=== PATIENT | male | born 1970 | race Hispanic/Latino ===

== ENCOUNTER 2017-09-14 16:08 | Outpatient (CLI) | payer BC | END 2017-09-14 16:09 | disposition home or self-care (01) | LOC: BICMRI 16:08 | PROVIDERS: ATTEND Orthopaedic Surgery | DX: M25.562 Pain in left knee (principal); S83.242A Other tear of medial meniscus, current injury, left knee, initial encounter; M25.462 Effusion, left knee; M71.22 Synovial cyst of popliteal space [Baker], left knee ==

== ENCOUNTER 2017-09-16 17:54 | Emergency (ER) | payer BC ==
[2017-09-16 19:27] LABS: #Basophils 0.1 thou/uL (0.0-0.2); #Eosinphils 0.2 thou/uL (0.0-0.7); #Lymphocytes 1.8 thou/uL (1.20-3.40); #Monocytes 0.6 thou/uL (0.11-0.59); %Basophils 1.1 % (0.0-1.0); %Eosinophils 2.3 % (0.0-10.0); %Lymphocytes 23.7 % (21.0-51.0); %Monocytes 7.5 % (0.0-10.0); %Neutrophils 65.4 % (42.0-75.0); Mean Corpuscular HGB CONC 35.7 g/dL (32.0-36.0); Mean Corpuscular Hemoglobin 34.6 pg (27.0-31.0); Mean Platelet Volume 6.3 fL (7.4-10.4); Platelet Count 154 thou/uL (130-400); RBC Distribution Width 12.4 % (11.5-14.5); White Blood Cell (WBC) Count 7.7 thou/uL (4.8-10.8)
[2017-09-16 19:33] LABS: INR-International Normal Ratio 1.2; PTT 34.4 SEC (22.9-36.1); Prothrombin Time 15.3 SEC (12.0-14.7)
[2017-09-16 19:50] LABS: ALT (SGPT) 21 U/L (8-55); AST (SGOT) 21 U/L (5-34); Albumin 4.1 g/dL (3.5-5.0); Alkaline Phosphatase 82 U/L (40-150); Anion Gap 14 mmol/L (10-20); BUN (Urea Nitrogen) 19 mg/dL (8.9-20.6); Calc. Creatinine Clearance 0 mL/min (70-130); Calcium 9.8 mg/dL (7.8-10.44); Carbon Dioxide 23 mmol/L (22-29); Chloride 105 mmol/L (98-107); Estimated GFR-MDRD Greater than 90; Globulin 4.2 g/dL (2.4-3.5); Glucose 117 mg/dL (70-105); Potassium 3.8 mmol/L (3.5-5.1); Protein, Total 8.3 g/dL (6.0-8.3); Sodium 138 mmol/L (136-145)
[2017-09-16 21:09] LABS: Bilirubin Negative (Negative); Blood, Urine Large (Negative); Clarity CLOUDY (Clear); Glucose, Urine (Dipstick) Negative (Negative); Leukocyte Negative (Negative); Nitrite Negative (Negative); Protein, Urine (Dipstick) 30 mg/dL (Neg-Trace)
[2017-09-16 21:10] LABS: Bacteria/HPF None Seen HPF (None Seen); Hyaline Casts/LPF 0-3 HYALINE CAST LPF (0-3 Hyaline); RBC/HPF GREATER THAN 50-TNTC HPF (0-3); Squamous Epithelial 0-3 HPF (0-3); WBC/HPF 0-3 HPF (0-3)
[2017-09-16 21:12] LABS: Sperm-AUWi Flag 514.9 (0-9.9)
[2017-09-16 21:20] LABS: Sperm/HPF 2+ HPF (None Seen)
--- NOTE | 2017-09-17 16:13 | CON ---
DATE OF CONSULTATION/PROCEDURE: 09/16/2017 REASON FOR CONSULTATION: Urinary retention. HISTORY OF PRESENT ILLNESS: Mr. Bartlett is a 47-year-old gentleman, who has a prior history of urethr al stricture disease. He underwent DVIU in 06/[address] Dora Pineda. He had been doing rela tively well until today. He states he is now unable to void. Bladder scan in the emergency room dem onstrated approximately 900 mL in his bladder. Attempts to place a catheter were not performed by [facility] emergency room staff. He denies any fevers or chills. PAST MEDICAL HISTORY: Hyperlipidemia; hypertension; obesity; perforated diverticulitis, requiring mu ltiple surgeries. 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 ALLERGIES: No known drug allergies. CHRONIC MEDICATIONS: Omeprazole, lisinopril, hydrochlorothiazide. SOCIAL HISTORY: He is . He has 2 children. REVIEW OF SYSTEMS: Respiratory: No shortness of breath. Cardiovascular: No chest pain or palpitat ions. Gastrointestinal: Denies chronic constipation, diarrhea, complicated prior surgical history f or perforated colon in 2010. Genitourinary: Please see history of present illness. Neurologic: No dizziness or unilateral weakness. PHYSICAL EXAMINATION: GENERAL: He is awake and alert. He is in mild distress secondary to pain. VITAL SIGNS: Temperature 98.8, blood pressure 148/82, pulse 82, respiratory rate 16. HEENT: Normocephalic, atraumatic. NECK: Supple, without masses. CHEST: Clear to auscultation. CARDIOVASCULAR: Regular rate and rhythm. ABDOMEN: Soft, nontender, well-healed abdominal incisions. GENITOURINARY: He is uncircumcised. Urethral meatus was normal. PROCEDURE: The patient was sterilely prepped and a filiform was passed into the bladder. Sequential Councill-tip dilation was performed with Councill-tip dilators up to 18 Malay. A 16-Malay [place] l-tip catheter was then passed over the filiform and the bladder was drained. The patient tolerated procedure well. IMPRESSION: Recurrent urethral stricture disease, status post direct visual internal urethrotomy by Dr. Pineda in 06/2015. Filiforms and followers with dilation today. RECOMMENDATIONS: 1. Antibiotic therapy as an outpatient. 2. Catheter for 1 week.
== END 2017-09-16 21:07 | disposition home or self-care (01) ==
LOC: ERS 17:54
DX: N35.9 Urethral stricture, unspecified (principal); E78.5 Hyperlipidemia, unspecified; I10 Essential (primary) hypertension; Z79.82 Long term (current) use of aspirin; Z79.899 Other long term (current) drug therapy
CPT/HCPCS: 36415; 51702; 80053; 81003; 81015; 85025; 85610; 85730; 87086

== ENCOUNTER 2017-11-09 08:34 | Outpatient (CLI) | payer BC ==
[2017-11-09 10:12] LABS: #Basophils 0.1 thou/uL (0.0-0.2); #Eosinphils 0.2 thou/uL (0.0-0.7); #Lymphocytes 1.5 thou/uL (1.20-3.40); #Monocytes 0.6 thou/uL (0.11-0.59); #Neutrophils 2.2 thou/uL (1.40-6.50); %Basophils 1.2 % (0.0-1.0); %Lymphocytes 32.7 % (21.0-51.0); %Monocytes 13.5 % (0.0-10.0); %Neutrophils 48.7 % (42.0-75.0); Hemoglobin 16.2 g/dL (14.0-18.0); Mean Corpuscular HGB CONC 35.2 g/dL (32.0-36.0); Mean Corpuscular Hemoglobin 34.8 pg (27.0-31.0); Mean Corpuscular Volume 98.8 fl (80.0-94.0); Mean Platelet Volume 6.4 fL (7.4-10.4); Platelet Count 138 thou/uL (130-400); RBC Distribution Width 13.4 % (11.5-14.5); Red Blood Cell (RBC) Count 4.67 mill/uL (4.70-6.10); White Blood Cell (WBC) Count 4.6 thou/uL (4.8-10.8)
[2017-11-09 10:27] LABS: Anion Gap 13 mmol/L (10-20); BUN (Urea Nitrogen) 15 mg/dL (8.9-20.6); Calc. Creatinine Clearance 0 mL/min (70-130); Calcium 9.6 mg/dL (7.8-10.44); Carbon Dioxide 26 mmol/L (22-29); Chloride 108 mmol/L (98-107); Estimated GFR-MDRD Greater than 90; Glucose 98 mg/dL (70-105); Potassium 4.3 mmol/L (3.5-5.1); Sodium 143 mmol/L (136-145)
--- NOTE | 2017-11-10 06:23 | EKG ---
Test Reason : Blood Pressure : / mmHG Vent. Rate : 067 BPM Atrial Rate : 067 BPM P-R Int : 200 ms QRS Dur : 100 ms QT Int : 416 ms P-R-T Axes : 000 -64 007 degrees QTc Int : 439 ms Normal sinus rhythm Left axis deviation Possible Anterior infarct (cited on or before 12-NOV-2013)/ Poor R wave progression Abnormal ECG When compared with ECG of 05-JUN-2015 13:25, Left posterior fascicular block is no longer Present Confirmed by JENNA CAMPO ([id number]) on 11/10/2017 6:11:34 AM Referred By: ZURI Confirmed By:JENNA CAMPO
== END 2017-11-09 08:35 | disposition home or self-care (01) ==
LOC: LABBT 08:34
PROVIDERS: ATTEND Orthopaedic Surgery
DX: Z01.818 Encounter for other preprocedural examination (principal); S83.232A Complex tear of medial meniscus, current injury, left knee, initial encounter
CPT/HCPCS: 80048; 85025; 93005; 93010

== ENCOUNTER 2017-11-16 06:53 | Day surgery (SDC) | payer BC ==
[2017-11-09 08:50] VITALS: BMI 45.9
--- NOTE | 2017-11-15 10:00 | HP ---
HISTORY OF PRESENT ILLNESS: The patient is a 47-year-old male who has a several-month history of lef t knee pain which developed after stepping in a hole while tailgating. He has had progressive sympto ms despite rest, restriction of activities, anti-inflammatory medications, and a previous cortisone i njection. He has pain with walking and has popping and catching sensation. PAST MEDICAL HISTORY: The patient has a history of a urethral stricture and required placement of Fo aime catheter a few months ago, but this problem has resolved. He has had a history of colon resectio n and hypertension. CURRENT MEDICATIONS: Include fenofibrate, lisinopril, hydrochlorothiazide, Cialis, omeprazole. ALLERGIES: He has no known allergies. FAMILY HISTORY/SOCIAL HISTORY/REVIEW OF SYSTEMS: Otherwise unremarkable. PHYSICAL EXAMINATION: GENERAL: Reveals a healthy heavyset male. HEENT: Unremarkable. NECK: Supple. CHEST: Clear. HEART: Regular rate and rhythm. ABDOMEN: Soft, nontender. RECTAL/GENITAL: Deferred. EXTREMITIES: Pertinent findings related to the left knee. There is puffiness but no definite effusi on. There is normal alignment. There is tenderness over the medial joint line. Range of motion is 3-120 degrees. There is pain with Lionel's maneuver. There is a left antalgic gait. Neurovascula r exam is intact. LABORATORY AND X-RAY FINDINGS: X-rays of the left knee reveal degenerative narrowing medially. MRI scan of the left knee reveals degenerative changes and a complex tear of the medial meniscus. IMPRESSION: Internal derangement, left knee with medial meniscal tear, possible component of degener ative joint disease. PLAN: Arthroscopy left knee with possible medial meniscectomy and/or debridement and shaving. The n ature of the surgery, length of recovery, and potential complications such as infection, loss of asmita on, incomplete relief, thromboembolic phenomena, progression of DJD, recurrent degenerative arthritis , recurrent tear and need for additional treatment or repeat surgery have been discussed in detail.
[2017-11-16] MEDS ORDERED: CEFAZOLIN/Water 2 GM/20 ML SYRINGE ONE (08:17)
[2017-11-16] MEDS ORDERED: Metoclopramide HCl 10 MG/2 ML VIAL ONE ×2 (08:23→11:43)
[2017-11-16] MEDS ORDERED: Ondansetron HCl/PF 4 MG/2 ML Vial ONE ×2 (08:23→11:43)
[2017-11-16] MEDS ORDERED: Fentanyl 100 MCG/2 ML VIAL ONE ×2 (08:25→09:10)
[2017-11-16] MEDS ORDERED: Bupivacaine HCl 0.5%/Epinephrine 1:200,000/PF 30 ml Vial ONE (09:03)
--- NOTE | 2017-11-16 09:57 | OP ---
DATE OF PROCEDURE: 11/16/2017 SURGEON: Quinton Moseley M.D. ANESTHESIA: General. PREOPERATIVE DIAGNOSIS: Medial meniscal tear and degenerative joint disease of left knee. POSTOPERATIVE DIAGNOSIS: Medial meniscal tear and degenerative joint disease, left knee. PROCEDURE: Arthroscopy left knee with partial medial meniscectomy. OPERATIVE FINDINGS: Examination under anesthesia revealed the knee to be stable. At arthroscopy, th ere was moderate effusion and moderate diffuse synovitis. There was early grade II and very early gr jimena III changes of the central portion of patella. No areas of exposed bone. There was a complex de generative type tear of the body of the mid and posterior horns of the medial meniscus and grade II a nd grade III changes of the medial femoral condyle and early changes of the medial tibial plateau, bu t no areas of exposed bone. ACL was intact. Lateral compartment revealed no significant degenerativ e changes. There was some slight degenerative fraying of the free margin of the lateral meniscus, bu t no discrete tear and I left as is. NARRATIVE REPORT: After satisfactory anesthesia was induced in the supine position, the patient was placed in a leg dillard and prepped and draped in routine manner. Left leg was elevated, exsanguinate d with an Esmarch bandage, and the tourniquet inflated to 350 mmHg. [place] arthroscope was introduc ed in the anterolateral portal, probe through an anteromedial portal, and inflow and outflow accompli shed through the scope using the Vision 360 Degres (V3D) arthroscopy pump. Arthroscopy was carried out and the above findings were noted. All findings were documented with the video printer and hard copies were made. The posterior horn of the medial meniscus was debrided with use of basket forceps and motorized sha cedric and the remaining rim balanced and probed and found to be stable. There was still intact rim of 3-4 mm. Medial femoral condyle and slight portion of the medial tibial plateau was debrided with a m otorized shaver as was the undersurface of the patella. The scope was introduced to the anteromedial compartment and all compartments visualized and additional pathology found. The knee was copiously irrigated through the scope and all instruments were then withdrawn. Twenty mL of 0.5% Marcaine with epinephrine was instilled into the knee joint and an additional 10 mL injected about the portal site s. The portal sites were closed with 3-0 nylon. A sterile bulky compressive dressing was applied an d the tourniquet deflated after 24 minutes. The foot promptly pinked up and the patient was awakened and taken to recovery room in stable condition. There were no apparent intraoperative complications . The estimated blood loss was negligible. The patient will be discharged home in satisfactory condition. He was instructed on ice, elevation, use of crutches, and home exercise program by the Physical Therapy Department. He was given written wound care instructions and a prescription for [place] 10 for pain, 40 tablets. He will be rechecked i n my office in 10-14 days or sooner if there any problems prior to that time.
[2017-11-16] MEDS ORDERED: Morphine 4 MG/ML VIAL ONE (10:43)
[2017-11-16] MEDS ORDERED: PROPOFOL 200 MG/20 ML VIAL ONE (11:43)
[2017-11-16] MEDS ORDERED: Lidocaine 1% PF 5 ML VIAL ONE (11:43)
[2017-11-16] MEDS ORDERED: Ketorolac Tromethamine 30 MG/ML VIAL ONE (11:43)
[2017-11-16] MEDS ORDERED: Dexamethasone 20 MG/5 ML VIAL ONE (11:43)
== END 2017-11-16 11:55 | disposition home or self-care (01) ==
LOC: SDC 06:53
PROVIDERS: ATTEND Orthopaedic Surgery
PROC: 0SBD4ZZ Excision of Left Knee Joint, Percutaneous Endoscopic Approach (ICD-10-PCS; principal; 2017-11-16)
DX: S83.232A Complex tear of medial meniscus, current injury, left knee, initial encounter (principal); M17.12 Unilateral primary osteoarthritis, left knee; I10 Essential (primary) hypertension; K21.9 Gastro-esophageal reflux disease without esophagitis; E78.5 Hyperlipidemia, unspecified; F17.290 Nicotine dependence, other tobacco product, uncomplicated; Z79.82 Long term (current) use of aspirin; Z79.899 Other long term (current) drug therapy; W18.42XA Slipping, tripping and stumbling without falling due to stepping into hole or opening, initial encounter
CPT/HCPCS: G8978-GP-CI; G8979-GP-CI; G8980-GP-CI; J0131; J0670; J1100; J1885; J2001; J2270; J2405; J2704; J2765; J3010

== ENCOUNTER 2018-09-16 22:05 | Emergency (ER) | payer BC ==
[2018-09-16 22:40] LABS: Bilirubin Negative (Negative); Blood, Urine Moderate (Negative); Clarity Slightly Cloudy (Clear); Glucose, Urine (Dipstick) Negative (Negative); Leukocyte Negative (Negative); Nitrite Negative (Negative); Protein, Urine (Dipstick) Negative (Neg-Trace); pH, Urine 6.5 (5.0-9.0)
[2018-09-16 22:41] LABS: Specific Gravity, Urine 1.006 (1.002-1.036)
[2018-09-16 22:48] LABS: Bacteria/HPF None Seen HPF (None Seen); Crystals/HPF None Seen HPF (Negative); Hyaline Casts/LPF NONE SEEN LPF (0-3 Hyaline); Squamous Epithelial 0-3 HPF (0-3); WBC/HPF 0-3 HPF (0-3)
[2018-09-16 23:30] LABS: Anion Gap 14 mmol/L (10-20); BUN (Urea Nitrogen) 12 mg/dL (8.9-20.6); Calc. Creatinine Clearance 0 mL/min (70-130); Calcium 9.7 mg/dL (7.8-10.44); Carbon Dioxide 19 mmol/L (22-29); Chloride 110 mmol/L (98-107); Estimated GFR-MDRD Greater than 90; Glucose 122 mg/dL (70-105); Potassium 3.5 mmol/L (3.5-5.1); Sodium 139 mmol/L (136-145)
[2018-09-16 23:37] LABS: Eosinophils 6 % (0-10); Hemoglobin 16.5 g/dL (14.0-18.0); Lymphocytes 26 % (21-51); MDiff Complete? YES; Mean Corpuscular HGB CONC 37.7 g/dL (32.0-36.0); Mean Corpuscular Hemoglobin 34.4 pg (27.0-31.0); Mean Corpuscular Volume 91.4 fL (78.0-98.0); Monocytes 15 % (0-10); Neutrophil 48 % (42-75); Platelet Count 109 thou/uL (130-400); Platelet Morphology Comment Appears Decreased; RBC Distribution Width 12.1 % (11.5-14.5); Reactive Lymphocytes 5 % (0-10); Red Blood Cell (RBC) Count 4.81 mill/uL (4.70-6.10)
== END 2018-09-16 23:55 | disposition home or self-care (01) ==
LOC: SCSER 22:05
DX: R33.9 Retention of urine, unspecified (principal); I10 Essential (primary) hypertension; E78.2 Mixed hyperlipidemia; Z79.899 Other long term (current) drug therapy
CPT/HCPCS: 36415; 51703; 80048; 81003; 81015; 85025

== ENCOUNTER 2019-05-09 16:02 | Observation (INO) | payer BC ==
[2019-05-09 18:09] LABS: Hemoglobin 16.5 g/dL (14.0-18.0); Mean Corpuscular HGB CONC 36.4 g/dL (32.0-36.0); Mean Corpuscular Volume 96.1 fL (78.0-98.0); Mean Platelet Volume 7.7 fL (7.4-10.4); Platelet Count 126 thou/uL (130-400); RBC Distribution Width 13.6 % (11.5-14.5); White Blood Cell (WBC) Count 8.6 thou/uL (4.8-10.8)
[2019-05-09 18:30] LABS: ALT (SGPT) 31 U/L (8-55); AST (SGOT) 42 U/L (5-34); Albumin 3.5 g/dL (3.5-5.0); Alkaline Phosphatase 77 U/L (40-110); Anion Gap 15 mmol/L (10-20); BUN (Urea Nitrogen) 43 mg/dL (8.9-20.6); Band 24 % (5-11); Bilirubin, Total 4.2 mg/dL (0.2-1.2); Calc. Creatinine Clearance 0 mL/min (70-130); Calcium 9.4 mg/dL (7.8-10.44); Carbon Dioxide 21 mmol/L (22-29); Chloride 99 mmol/L (98-107); Eosinophils 11 % (0-10); Estimated GFR-MDRD 24; Globulin 4.1 g/dL (2.4-3.5); Glucose 82 mg/dL (70-105); Lipase 273 U/L (8-78); Lymphocytes 15 % (21-51); MDiff Complete? YES; Monocytes 20 % (0-10); Neutrophil 23 % (42-75); Platelet Morphology Comment Appears Decreased; Protein, Total 7.6 g/dL (6.0-8.3); RBC Morphology Normal; Reactive Lymphocytes 7 % (0-10); Sodium 132 mmol/L (136-145)
[2019-05-09 18:35] LABS: Potassium 2.8 mmol/L (3.5-5.1)
[2019-05-09] MEDS ORDERED: Potassium Chloride 40 MEQ in Sodium Chloride 0.9% 500 ML IVPB SCH (19:15)
[2019-05-09 21:54] LABS: Bacteria/HPF None Seen HPF (None Seen); Bilirubin Negative (Negative); Blood, Urine Negative (Negative); Clarity Turbid (Clear); Glucose, Urine (Dipstick) Normal (Negative); Leukocyte Negative Leu/uL (Negative); Mucous/LPF 1+ LPF (<2+); Nitrite Negative (Negative); Protein, Urine (Dipstick) 30 mg/dL (Neg-Trace); RBC/HPF 0-3 HPF (0-3); Squamous Epithelial 0-3 HPF (0-3); Urobilinogen Normal mg/dL (Less than 2)
[2019-05-09] MEDS ORDERED: Ondansetron PF 4 MG/2 ML Vial IVP PRN (23:13)
[2019-05-09] MEDS ORDERED: Acetaminophen 325 MG TAB PO PRN (23:13)
[2019-05-09] MEDS ORDERED: Ondansetron ODT 4 MG TAB PO PRN (23:13)
[2019-05-09] MEDS ORDERED: Acetaminophen 650 MG Suppository PR PRN (23:13)
[2019-05-10 01:06] VITALS: BMI 46.0
[2019-05-10] MEDS: Sodium Chloride 0.9% 1,000 ML IV SCH ×3 (01:16→07:15)
--- NOTE | 2019-05-10 04:43 | HP ---
PRIMARY CARE PHYSICIAN: Dr. Michele Hobbs. CODE STATUS: Full code. CHIEF COMPLAINT: Generalized weakness. HISTORY OF PRESENT ILLNESS: This is a 49-year-old male patient with past medical history of obesity, hypertension, hyperlipidemia, and high triglycerides, came to the hospital after having generalized weakness associated with diarrhea. The patient's symptoms started on Tuesday. He was found to have blood pressure in the 80s over 40s and for that reason, he was sent to the hospital. Symptoms started insidiously and have been gradually getting worse, moderate to severe. REVIEW OF SYSTEMS: CONSTITUTIONAL: No fever chills. The patient reported generalized weakness. RESPIRATORY: No cough, sputum production, or shortness of breath. CARDIOVASCULAR: No chest pain or palpitation. GASTROINTESTINAL: The patient has no nausea or vomiting. The patient has no diarrhea. No abdominal pain. CLINICAL PHARMACY MANAGER: No dizziness, headache, or feeling lightheaded. GENITOURINARY: No burning urination. EXTREMITIES: No leg swelling. All other systems were reviewed and negative except for the findings mentioned above. PAST MEDICAL HISTORY: As mentioned in the HPI. PAST SURGICAL HISTORY: Urethral stricture in 2015. Ruptured intestine, colon. Appendectomy. PSYCHIATRIC HISTORY: No previous psych history. SOCIAL HISTORY: No drugs. The patient is a former cigarette smoker, smoking more than 10 years ago. FAMILY HISTORY: Reviewed and noncontributory for current presentation. KNOWN ALLERGIES: No known drug allergies. REPORTED MEDICATIONS: 1. Lisinopril. 2. Omeprazole. 3. Aspirin. PHYSICAL EXAMINATION: VITAL SIGNS: On presentation; blood pressure 99/46 with heart rate 81, respiratory rate was 20, temperature 98.1, pain was 0, and oxygen saturation was 98% on room air. By the time of my examination, the blood pressure has come up to the 110s. GENERAL APPEARANCE: The patient is obese, alert, oriented, no acute distress. HEENT: Eyes, normal conjunctivae. Dry oral mucosa. Anicteric. No JVD. RESPIRATORY: Bilateral air entry. No rales. No wheezes. Symmetric expansion. CARDIOVASCULAR: Normal rate. Regular rhythm. No murmurs. No gallop. No edema. ABDOMEN: Soft. Normal bowel sounds. MUSCULOSKELETAL: Baseline range of motion and strength. SKIN: Warm and intact. No pallor. No rash. No redness. Capillary refill seems to be intact. NEURO: No evidence of any new focal weakness. Cranial nerves seem to be intact. PSYCH: The patient is in good mood. No anxiety. Optimal judgment. LABORATORY DATA: EKG was reviewed. The patient has sinus rhythm with premature atrial complexes, ventricular rate 71, NC 172, QRS 106, and QT corrected 497. Labs were reviewed. The patient has a white count 9.6, hemoglobin 16.5, MCV 96.1, and platelet count 126. Chemistry; sodium 132, potassium 2.8, chloride 99, carbon dioxide 21, anion gap 15, BUN 43, creatinine 2.84, GFR 24, and glucose 82. Lactic acid initially 3.0, second one 2.0. LFTs were negative. Mild elevation in AST of 42. Albumin 3.5, globulin 4.1, albumin-globulin ratio 0.9. Lipase 273. Urine was done and the patient has white count of 4 to 6. ASSESSMENT AND PLAN: The patient will be placed in the hospital with following medical problems; 1. Dehydration. The patient had been doing some outside work and also had some diarrhea. The patient has acute kidney injury that was secondary to dehydration. We will hydrate. We will monitor and treat accordingly. 2. Acute kidney injury. The patient has a creatinine of 2.84. The previous creatinine that we have on record from March was 0.7. Likely due to dehydration. We will hydrate. We will monitor kidney function and treat accordingly. 3. Hyponatremia, sodium 132, this is mild. No need for any further treatment at this point. 4. Hypokalemia, potassium 2.8. This is moderate. We will replace electrolytes as needed. 5. Mild elevation of lipase at 273. We will monitor. No other symptoms leading to pancreatitis diagnosis. 6. Lactic acidosis, on presentation was 3.0, it was corrected to 2.0. We will monitor and treat accordingly. 7. The patient has bandemia of 24. Unclear etiology for this problem. We will continue to observe and we will treat with antibiotics if any other findings appear. As of now, the picture goes more with dehydration than with infection. 8. Deep venous thrombosis prophylaxis. Job ID: [id number]
[2019-05-10 05:56] LABS: Anion Gap 9 mmol/L (10-20); BUN (Urea Nitrogen) 31 mg/dL (8.9-20.6); Calc. Creatinine Clearance 177 mL/min (70-130); Calcium 8.1 mg/dL (7.8-10.44); Carbon Dioxide 21 mmol/L (22-29); Chloride 106 mmol/L (98-107); Estimated GFR-MDRD 79; Glucose 98 mg/dL (70-105); Potassium 2.7 mmol/L (3.5-5.1); Sodium 133 mmol/L (136-145)
[2019-05-10 06:15] LABS: Band 11 % (5-11); Eosinophils 2 % (0-10); Hemoglobin 13.8 g/dL (14.0-18.0); Hypochromia SLIGHT = 6-15 cells (100X) (0-5/hpf); Lymphocytes 32 % (21-51); MDiff Complete? YES; Mean Corpuscular HGB CONC 36.6 g/dL (32.0-36.0); Mean Corpuscular Hemoglobin 35.6 pg (27.0-31.0); Mean Corpuscular Volume 97.2 fL (78.0-98.0); Mean Platelet Volume 7.8 fL (7.4-10.4); Monocytes 13 % (0-10); Neutrophil 42 % (42-75); Platelet Count 90 thou/uL (130-400); Platelet Morphology Comment Appears Decreased; RBC Distribution Width 13.5 % (11.5-14.5); Red Blood Cell (RBC) Count 3.87 mill/uL (4.70-6.10); White Blood Cell (WBC) Count 5.4 thou/uL (4.8-10.8)
[2019-05-10] MEDS ORDERED: Potassium Chloride 20 MEQ TAB PO SCH ×2 (06:15→09:00)
[2019-05-10] MEDS ORDERED: Potassium Chloride 40 MEQ in Premix Bag 1 BAG IVPB SCH (07:45)
[2019-05-10 07:59] LABS: ALT (SGPT) 26 U/L (8-55); AST (SGOT) 34 U/L (5-34); Albumin 2.8 g/dL (3.5-5.0); Alkaline Phosphatase 64 U/L (40-110); Bilirubin, Direct 1.7 mg/dL (0.1-0.3); Bilirubin, Total 2.6 mg/dL (0.2-1.2); Protein, Total 5.9 g/dL (6.0-8.3)
[2019-05-10] MEDS: Potassium Chloride 20 MEQ in Premix Bag 1 BAG IVPB SCH ×2 (08:11→10:52)
[2019-05-10] MEDS ORDERED: FLU VACC QS2019-20(6MOS UP)/PF 60 MCG/0.5 ML SYRINGE IM ONE (09:00)
[2019-05-10] MEDS: Enoxaparin Sodium 30 MG/0.3 ML SYRINGE SC SCH ×2 (09:29→09:38)
[2019-05-10] MEDS ORDERED: metroNIDAZOLE 500 MG TAB PO SCH ×2 (09:45→15:00)
[2019-05-10] MEDS ORDERED: Azithromycin 250 MG TAB PO SCH (09:45)
[2019-05-10] MEDS ORDERED: Saccharomyces boulardii 250 MG CAP PO SCH (09:45)
[2019-05-10 14:37] LABS: Potassium 3.6 mmol/L (3.5-5.1)
[2019-05-10 16:37] VITALS: BP 136/65; TEMP 97.8
[2019-05-11] MEDS ORDERED: Azithromycin 250 MG TAB PO SCH (09:00)
[2019-05-11] MEDS ORDERED: Saccharomyces boulardii 250 MG CAP PO SCH (09:00)
--- NOTE | 2019-05-11 14:43 | DIS ---
DATE OF ADMISSION: 05/09/2019 DATE OF DISCHARGE: 05/10/2019 DISCHARGE DISPOSITION: Home. FOLLOWUP: Follow up with Dr. Michele Hobbs in 1 week. CMP with lipase after 3 days is recommended. Primary care physician advised to follow. The patient was advised to resume lisinopril/hydrochlorothiazide after 2 to 3 days. ALLERGIES: NO KNOWN DRUG ALLERGIES. DIAGNOSTIC TESTS: WBC on admission was 8.6 with 24% bandemia. At discharge, his WBC is 5.4 with 11% bandemia (normal range). Lowest potassium was 2.7, at discharge is 3.6. Total bilirubin on admission was 4.2, at discharge is 2.6 with normal AST and ALT. His AST on admission was 42. BRIEF HOSPITAL COURSE: The patient is a 49-year-old male, who presented to the emergency room with generalized weakness along with significant diarrhea. Please refer to the history and physical for further details. The patient was admitted to the hospital with a diagnosis of dehydration with acute kidney injury secondary to acute gastroenteritis. His creatinine on admission was 2.84, that improved to 1.0 on IV hydration. He also had electrolyte abnormalities, which were corrected. His potassium at discharge is 3.6. His stool workup was positive for Campylobacter. Preliminary stool culture is normal. He has been started on azithromycin with Flagyl. He appears stable for discharge. He only had 2 episodes of diarrhea on the day of discharge. He never had any nausea and vomiting. His lipase elevation is probably not from acute pancreatitis. A repeat lipase after 2 to 3 days is recommended along with electrolytes and LFTs. FINAL DIAGNOSES: 1. Acute gastroenteritis. 2. Generalized weakness secondary to acute gastroenteritis. 3. Dehydration with acute kidney injury with hyponatremia, hypokalemia, and metabolic acidosis. 4. Abnormal liver function tests secondary to acute gastroenteritis. 5. Lactic acidosis secondary to dehydration. His lactic acid on admission was 3.0. 6. Hypertension. 7. Hyperlipidemia. 8. Morbid obesity with a body mass index of 46. Plan of care was discussed with the patient in detail. He stated understanding. Job ID: [id number]
--- NOTE | 2019-05-13 02:46 | EKG ---
Test Reason : ER Blood Pressure : / mmHG Vent. Rate : 071 BPM Atrial Rate : 071 BPM P-R Int : 172 ms QRS Dur : 106 ms QT Int : 458 ms P-R-T Axes : -18 -54 016 degrees QTc Int : 497 ms Sinus rhythm with Premature atrial complexes Left axis deviation Inferior infarct , age undetermined Abnormal ECG Confirmed by BRIA WALSH, MARIBEL Garcia ([id number]), book editor SHERRY DALEY ([id number]) on 05/13/2019 2:46:22 AM Referred By: Confirmed By:MARIBEL FRASER MD
== END 2019-05-10 17:27 | disposition home or self-care (01) ==
LOC: ERS 16:02 → ERHOLD 19:00 → 2SW 05-10 00:53
PROVIDERS: ADMIT Hospitalist; ATTEND Hospitalist
DX: K52.9 Noninfective gastroenteritis and colitis, unspecified (principal); E86.0 Dehydration; N17.9 Acute kidney failure, unspecified; E87.1 Hypo-osmolality and hyponatremia; E87.6 Hypokalemia; E87.2 Acidosis; I10 Essential (primary) hypertension; E78.5 Hyperlipidemia, unspecified; E66.9 Obesity, unspecified; Z68.42 Body mass index [BMI] 45.0-49.9, adult; Z87.891 Personal history of nicotine dependence; Z79.82 Long term (current) use of aspirin; Z79.899 Other long term (current) drug therapy
CPT/HCPCS: 36415; 80048; 80053; 80076; 81003; 81015; 83605; 83630; 83690; 83735; 85025; 87045; 87046; 87328; 87329; 87427; 87449; 93005; 96361; 96365; 96366; G0378; J1650; J3480; J7050

== ENCOUNTER 2019-05-30 08:44 | Emergency (ER) | payer BC ==
--- NOTE | 2019-05-30 09:37 | RAD ---
UPRIGHT PORTABLE CHEST 1 VIEW: Date: 05/30/19 HISTORY: Shortness of breath. Headache. COMPARISON: 11/12/13. FINDINGS: Heart size is within normal limits. The lungs are clear. No confluent pneumonia, overt edema, or pleu ral effusion. IMPRESSION: No significant acute intrathoracic disease. POS: [facility]
[2019-05-30 09:42] LABS: Band 3 % (5-11); Eosinophils 4 % (0-10); Hemoglobin 17.3 g/dL (14.0-18.0); Lymphocytes 48 % (21-51); MDiff Complete? YES; Mean Platelet Volume 9.4 fL (7.4-10.4); Monocytes 16 % (0-10); Neutrophil 30 % (42-75); Platelet Count 50 thou/uL (130-400); Platelet Morphology Comment Appears Decreased; Polychromasia SLIGHT = 2-3 cells (100X) (0-2/hpf); RBC Distribution Width 13.5 % (11.5-14.5); Red Blood Cell (RBC) Count 4.94 mill/uL (4.70-6.10); White Blood Cell (WBC) Count 3.5 thou/uL (4.8-10.8)
[2019-05-30 10:05] LABS: ALT (SGPT) 23 U/L (8-55); AST (SGOT) 41 U/L (5-34); Albumin 3.6 g/dL (3.5-5.0); Alkaline Phosphatase 102 U/L (40-110); Anion Gap 17 mmol/L (10-20); BUN (Urea Nitrogen) 13 mg/dL (8.9-20.6); Bilirubin, Total 2.2 mg/dL (0.2-1.2); Calc. Creatinine Clearance 0 mL/min (70-130); Calcium 9.7 mg/dL (7.8-10.44); Carbon Dioxide 14 mmol/L (22-29); Chloride 111 mmol/L (98-107); Estimated GFR-MDRD Greater than 90; Globulin 4.6 g/dL (2.4-3.5); Glucose 102 mg/dL (70-105); Potassium 3.8 mmol/L (3.5-5.1); Protein, Total 8.2 g/dL (6.0-8.3); Sodium 138 mmol/L (136-145)
[2019-05-30 12:37] LABS: Troponin I 0.013 ng/mL (< 0.028)
== END 2019-05-30 12:49 | disposition home or self-care (01) ==
LOC: ERS 08:44
DX: R07.89 Other chest pain (principal); I10 Essential (primary) hypertension; Z87.891 Personal history of nicotine dependence; Z79.899 Other long term (current) drug therapy
CPT/HCPCS: 36415; 71045; 80053; 83880; 84484; 85025; 93005

== ENCOUNTER 2019-07-13 13:15 | Emergency (ER) | payer BC ==
[2019-07-13] MEDS ORDERED: Ketorolac Tromethamine 30 MG/ML VIAL ONE (14:07)
[2019-07-13 14:29] LABS: #Basophils 0.1 thou/uL (0.0-0.2); #Eosinphils 0.2 thou/uL (0.0-0.7); #Lymphocytes 1.2 thou/uL (1.20-3.40); #Monocytes 0.6 thou/uL (0.11-0.59); #Neutrophils 2.4 thou/uL (1.40-6.50); %Basophils 1.5 % (0.0-1.0); %Eosinophils 4.6 % (0.0-10.0); %Lymphocytes 27.8 % (21.0-51.0); %Monocytes 12.9 % (0.0-10.0); %Neutrophils 53.2 % (42.0-75.0); Hemoglobin 15.4 g/dL (14.0-18.0); Mean Corpuscular HGB CONC 36.1 g/dL (32.0-36.0); Mean Corpuscular Hemoglobin 35.2 pg (27.0-31.0); Mean Corpuscular Volume 97.5 fL (78.0-98.0); Mean Platelet Volume 6.7 fL (7.4-10.4); Platelet Count 87 thou/uL (130-400); RBC Distribution Width 13.3 % (11.5-14.5); Red Blood Cell (RBC) Count 4.37 mill/uL (4.70-6.10); White Blood Cell (WBC) Count 4.5 thou/uL (4.8-10.8)
[2019-07-13 14:37] LABS: Bilirubin Negative (Negative); Blood, Urine Negative (Negative); Clarity Clear (Clear); Glucose, Urine (Dipstick) 30 mg/dL (Negative); Leukocyte Negative Leu/uL (Negative); Nitrite Negative (Negative); Protein, Urine (Dipstick) 10 mg/dL (Neg-Trace)
--- NOTE | 2019-07-13 14:42 | RAD ---
XR Chest 1 View Portable HISTORY: Altered mental status COMPARISON: 05/30/2019 FINDINGS: The heart size is normal. The lungs are well expanded without focal areas of consolidation, pneumothorax or pleural effusions. IMPRESSION: No radiographic evidence of acute cardiopulmonary process.
[2019-07-13 14:51] LABS: Chloride 112 mmol/L (98-107); Potassium 3.4 mmol/L (3.5-5.1); Sodium 139 mmol/L (136-145)
[2019-07-13 14:52] LABS: ALT (SGPT) 21 U/L (8-55); AST (SGOT) 32 U/L (5-34); Albumin 3.5 g/dL (3.5-5.0); Alkaline Phosphatase 122 U/L (40-110); Anion Gap 9 mmol/L (10-20); BUN (Urea Nitrogen) 12 mg/dL (8.9-20.6); Bilirubin, Total 2.4 mg/dL (0.2-1.2); Calc. Creatinine Clearance 0 mL/min (70-130); Calcium 9.2 mg/dL (7.8-10.44); Carbon Dioxide 21 mmol/L (22-29); Estimated GFR-MDRD Greater than 90; Globulin 3.7 g/dL (2.4-3.5); Glucose 108 mg/dL (70-105); Protein, Total 7.2 g/dL (6.0-8.3)
== END 2019-07-13 15:36 | disposition home or self-care (01) ==
LOC: ERS 13:15
DX: R53.1 Weakness (principal); I10 Essential (primary) hypertension; E78.1 Pure hyperglyceridemia; E78.5 Hyperlipidemia, unspecified; F17.290 Nicotine dependence, other tobacco product, uncomplicated; Z79.899 Other long term (current) drug therapy
CPT/HCPCS: 36415; 71045; 80053; 81003; 83605; 85025; 87040; 87081; 87086; 87430; 87804; 96361; 96374; J1885

== ENCOUNTER 2019-08-06 08:00 | Outpatient (CLI) | payer BC ==
--- NOTE | 2019-08-06 08:33 | ULT ---
ULTRASOUND GALLBLADDER RIGHT UPPER QUADRANT: CLINICAL HISTORY: Jaundice. Campylobacter enteritis. COMPARISON: None. FINDINGS: Pancreas: The head of the pancreas has a normal echotexture. The remainder the pancreas is obscured b y bowel gas. Liver:Heterogeneous echotexture of the liver may be due to hepatic steatosis or hepatocellular diseas e. Subsequent limited evaluation for hepatic masses and intrahepatic biliary dilatation. The right hepatic lobe measures 14.5 cm. Gallbladder: Surgically absent. Salguero's sign:Not applicable. Portal Vein: Patent. Appropriate directional flow. Bile ducts: Common bile duct diameter 0.44 cm. Right kidney: No hydronephrosis. Right kidney measures 13.4 cm in length. IMPRESSION: Heterogeneous echotexture of liver which may be due to hepatic steatosis or hepatocellular disease. I f there is concern for hepatic masses, consider abdomen MRI or liver mass protocol CT. Transcribed Date/Time: 08/06/2019 9:18 AM
== END 2019-08-06 08:01 | disposition home or self-care (01) ==
LOC: SCSULT 08:00
PROVIDERS: ATTEND Family Medicine
DX: R17 Unspecified jaundice (principal); A04.5 Campylobacter enteritis; K76.89 Other specified diseases of liver
CPT/HCPCS: 76705

== ENCOUNTER 2019-09-06 08:57 | Outpatient (CLI) | payer BC ==
--- NOTE | 2019-09-06 10:51 | CT ---
CT Abdomen Pelvis W Con HISTORY: Abnormal ultrasound of 08/06/2019, elevated bilirubin. COMPARISON: 04/29/2011 FINDINGS: There is mild scarring in the right lung base. The liver demonstrates decreased attenuation compared to the spleen consistent with fatty infiltration. A 13 mm low-density lesion in the left lobe of the liver is stable. The spleen is enlarged measuring 18.4 cm in AP dimension. The patient is postcholecystectomy. The pancreas, adrenal glands and kidneys are normal. There is no evidence of abnormal mediastinal or ductal dilatation. No free air, free fluid or lymphadenopathy seen in the abdomen. Mildly prominent aortocaval lymph nod es are stable. Enlarged left external iliac lymph nodes are noted measuring 17 mm. There is interval reversal of the left-sided colostomy since the comparison study. There is no evidence of ane urysmal dilatation of the abdominal aorta. There are degenerative changes in the spine. There are new postoperative changes in the upper abdomen since the comparison exam. No abnormal dilat ation of the small bowel loops is seen. No abnormally loculated fluid collection is identified to suggest abscess formation. There is a small left-sided fat-containing inguinal hernia. IMPRESSION: 1. Fatty liver 2. Splenomegaly 3. Left external iliac lymphadenopathy
[2019-09-06] MEDS ORDERED: Iopamidol 370 76% 100 ML VIAL ONE (13:13)
== END 2019-09-06 08:58 | disposition home or self-care (01) ==
LOC: CT 08:57
PROVIDERS: ATTEND Family Medicine
DX: A04.5 Campylobacter enteritis (principal); R93.2 Abnormal findings on diagnostic imaging of liver and biliary tract; R17 Unspecified jaundice; E66.01 Morbid (severe) obesity due to excess calories; R41.0 Disorientation, unspecified; K76.0 Fatty (change of) liver, not elsewhere classified; R16.1 Splenomegaly, not elsewhere classified; R59.0 Localized enlarged lymph nodes
CPT/HCPCS: 74177; Q9967

== ENCOUNTER 2019-09-27 11:39 | Emergency (ER) | payer BC ==
--- NOTE | 2019-09-27 12:10 | CT ---
Exam: CT brain PROVIDED CLINICAL HISTORY: Slurred speech COMPARISON: None FINDINGS: The ventricular system is normal in size and morphology. No evidence for intracranial hemorrhage or mass effect. The extracranial soft tissues and osseous structures demonstrate no evidence for an acute abnormality. IMPRESSION: No evidence for intracranial hemorrhage or mass effect.
[2019-09-27 12:14] LABS: #Basophils 0.1 thou/uL (0.0-0.2); #Eosinphils 0.2 thou/uL (0.0-0.7); #Lymphocytes 1.4 thou/uL (1.20-3.40); #Monocytes 0.7 thou/uL (0.11-0.59); #Neutrophils 2.7 thou/uL (1.40-6.50); %Basophils 1.6 % (0.0-1.0); %Eosinophils 4.1 % (0.0-10.0); %Lymphocytes 27.4 % (21.0-51.0); %Monocytes 13.6 % (0.0-10.0); %Neutrophils 53.3 % (42.0-75.0); Hemoglobin 16.1 g/dL (14.0-18.0); Mean Corpuscular HGB CONC 33.5 g/dL (32.0-36.0); Mean Corpuscular Hemoglobin 33.1 pg (27.0-31.0); Mean Corpuscular Volume 98.7 fL (78.0-98.0); Mean Platelet Volume 6.9 fL (7.4-10.4); Platelet Count 98 thou/uL (130-400); RBC Distribution Width 13.6 % (11.5-14.5); Red Blood Cell (RBC) Count 4.86 mill/uL (4.70-6.10)
[2019-09-27 12:16] LABS: INR-International Normal Ratio 1.4; Prothrombin Time 16.7 SEC (12.0-14.7)
--- NOTE | 2019-09-27 12:16 | RAD ---
RADIOGRAPH CHEST 1 VIEW: DATE: 09/27/2019. HISTORY: A 49-year-old male with acute stroke symptoms. Concern for aspiration. FINDINGS: There are no air space densities, pulmonary edema, pneumothorax, or cardiomegaly. The lateral costop hrenic angles are sharp. IMPRESSION: No acute cardiopulmonary findings. jn [] POS: [facility]
[2019-09-27 12:17] LABS: PTT 42.1 SEC (22.9-36.1)
[2019-09-27 12:30] LABS: Base Excess-Venous -2.2 mmol/L (-2.0 to 3.0); Bicarbonate (HCO3v) 20.9 mmol/L (22.0-28.0); CO2 Tension (PvCO2) 30.6 mmHg (40.0-50.0); Calcium, Ionized 1.17 mmol/L (See Comments:); Chloride 110 mmol/L (98-107); Potassium 3.6 mmol/L (3.5-5.1); Sodium 143 mmol/L (138-145); T. Carbon Dioxide 21.9 mmol/L (22.0-28.0); vO2 Saturation-calc 99.5 % (60.0-85.0)
[2019-09-27 12:33] LABS: ALT (SGPT) 31 U/L (8-55); AST (SGOT) 46 U/L (5-34); Albumin 3.8 g/dL (3.5-5.0); Alkaline Phosphatase 119 U/L (40-110); Anion Gap 14 mmol/L (10-20); BUN (Urea Nitrogen) 12 mg/dL (8.9-20.6); Bilirubin, Total 3.4 mg/dL (0.2-1.2); CK (CPK) 214 U/L (30-200); Calc. Creatinine Clearance 0 mL/min (70-130); Calcium 9.7 mg/dL (7.8-10.44); Carbon Dioxide 19 mmol/L (22-29); Chloride 112 mmol/L (98-107); Estimated GFR-MDRD Greater than 90; Globulin 3.9 g/dL (2.4-3.5); Glucose 102 mg/dL (70-105); Magnesium 1.8 mg/dL (1.6-2.6); Potassium 3.6 mmol/L (3.5-5.1); Protein, Total 7.7 g/dL (6.0-8.3); Sodium 141 mmol/L (136-145)
[2019-09-27 12:42] LABS: Bilirubin Negative (Negative); Blood, Urine Negative (Negative); Clarity Clear (Clear); Glucose, Urine (Dipstick) Normal (Negative); Leukocyte Negative Leu/uL (Negative); Nitrite Negative (Negative); Protein, Urine (Dipstick) 20 mg/dL (Neg-Trace)
[2019-09-27 15:46] LABS: Acetaminophen Less than 6.0 mcg/mL (10.0-30.0); Alcohol Less than 10 mg/dL (Less than 10); Salicylate Less than 8.0 mg/dL (15.0-30.0)
== END 2019-09-27 15:57 | disposition home or self-care (01) ==
LOC: ERS 11:39
DX: E72.20 Disorder of urea cycle metabolism, unspecified (principal); R41.0 Disorientation, unspecified; E78.5 Hyperlipidemia, unspecified; E78.1 Pure hyperglyceridemia; I10 Essential (primary) hypertension; Z87.891 Personal history of nicotine dependence; Z79.899 Other long term (current) drug therapy
CPT/HCPCS: 36416; 70450; 71045; 80053; 80307; 81003; 82140; 82330; 82550; 82803; 83735; 84484; 85025; 85610; 85730; 93005

== ENCOUNTER 2019-10-15 08:10 | Day surgery (SDC) | payer BC ==
[2019-10-12 16:10] VITALS: BMI 45.4
[~2019-10-15 08:10] MED LIST: FLU VACC QS2019-20(6MOS UP)/PF 60 MCG/0.5 ML SYRINGE IM ONE
[2019-10-15] MEDS ORDERED: Lidocaine 1% PF 5 ML VIAL ONE (09:29)
[2019-10-15] MEDS ORDERED: Sodium Bicarbonate 2.5 MEQ/5 ML VIAL ONE (09:29)
[2019-10-15] MEDS ORDERED: Fentanyl 100 MCG/2 ML VIAL ONE (09:45)
[2019-10-15] MEDS ORDERED: Midazolam HCl 2 mg/2 ml Vial ONE (09:45)
[2019-10-15 10:14] VITALS: BP 125/61; TEMP 97.9
--- NOTE | 2019-10-15 10:50 | ULT ---
Ultrasound-guided random core biopsy of the liver: 10/15/2019 HISTORY: Hepatic steatosis, abnormal liver function tests FINDINGS: Informed consent for core biopsy of the liver obtained prior to the procedure. Preprocedural imaging demonstrates heterogeneity and increased echogenicity of the hepatic parenchyma suggesting underlying hepatocellular disease. The epigastric region was prepped and draped in normal sterile fashion and skin overlying the left lo be of the liver was anesthetized with 1% buffered lidocaine. With direct sonographic guidance, an 18-gauge core biopsy needle was advanced into the anterior aspec t of the left lobe of the liver. An 18-gauge core biopsy was obtained. The specimen appears visually adequate. Patient tolerated the procedure well. Postprocedural imaging demonstrates no evidence for active blee ding or subcapsular hematoma. IMPRESSION: Successful 18-gauge core biopsy of the left hepatic lobe as above.
== END 2019-10-15 11:15 | disposition home or self-care (01) ==
LOC: ULT 08:10
PROVIDERS: ATTEND Family Medicine
PROC: 0FB23ZX Excision of Left Lobe Liver, Percutaneous Approach, Diagnostic (ICD-10-PCS; principal; 2019-10-15)
DX: K76.0 Fatty (change of) liver, not elsewhere classified (principal); K72.90 Hepatic failure, unspecified without coma; I10 Essential (primary) hypertension; F17.200 Nicotine dependence, unspecified, uncomplicated; E78.5 Hyperlipidemia, unspecified; G47.33 Obstructive sleep apnea (adult) (pediatric); Z79.899 Other long term (current) drug therapy
CPT/HCPCS: 47000; 76942; 88307; 88313; J2001; J2250; J3010

== ENCOUNTER 2020-02-07 07:16 | Outpatient (CLI) | payer BC ==
--- NOTE | 2020-02-07 07:58 | ULT ---
Hepatic Doppler ultrasound: 02/17/2020 COMPARISON: None HISTORY: Cirrhosis FINDINGS: Multiplanar grayscale sonographic imaging of the upper abdomen performed. Hepatic and splen ic vasculature assessed with Doppler interrogation including color flow and spectral analysis FINDINGS: The pancreas is obscured by bowel gas. The hepatic parenchyma is heterogeneous and echogeni c with a subtle peripheral irregular contour consistent with the provided history of cirrhosis. Main portal vein is patent and demonstrates normal directional flow. The gallbladder is surgically ab sent. The common bile duct measures 4 mm, within normal limits. The hepatic artery, the IVC, the intrahepatic portal system and the hepatic veins are patent with nor mal directional flow. The spleen is enlarged, measuring up to 14.1 cm. The splenic artery and vein are patent and demonstra te appropriate waveforms. The abdominal aorta could not be well visualized on this exam. IMPRESSION: Cirrhotic configuration of the liver with splenomegaly suggesting portal hypertension. Pa tent hepatic and splenic vasculature.
== END 2020-02-07 07:17 | disposition home or self-care (01) ==
LOC: BICULT 07:16
PROVIDERS: ATTEND Internal Medicine Gastroenterology
DX: K74.60 Unspecified cirrhosis of liver (principal); K72.90 Hepatic failure, unspecified without coma; E66.01 Morbid (severe) obesity due to excess calories; R16.1 Splenomegaly, not elsewhere classified
CPT/HCPCS: 76705

== ENCOUNTER 2020-09-19 21:07 | Inpatient (IN) | payer BC ==
[2020-09-19 21:54] LABS: Hemoglobin 14.8 g/dL (14.0-18.0); Mean Corpuscular HGB CONC 36.1 g/dL (32.0-36.0); Mean Corpuscular Hemoglobin 37.4 pg (27.0-31.0); Mean Platelet Volume 7.3 fL (7.4-10.4); Platelet Count 66 thou/uL (130-400); RBC Distribution Width 14.6 % (11.5-14.5); Red Blood Cell (RBC) Count 3.95 mill/uL (4.70-6.10); White Blood Cell (WBC) Count 5.6 thou/uL (4.8-10.8)
[2020-09-19 21:56] LABS: ALT (SGPT) 41 U/L (8-55); AST (SGOT) 66 U/L (5-34); Alkaline Phosphatase 151 U/L (40-110); Anion Gap 12 mmol/L (10-20); BUN (Urea Nitrogen) 20 mg/dL (8.4-25.7); Bilirubin, Total 4.5 mg/dL (0.2-1.2); Calc. Creatinine Clearance 0 mL/min (70-130); Calcium 8.7 mg/dL (7.8-10.44); Carbon Dioxide 20 mmol/L (22-29); Chloride 111 mmol/L (98-107); Eosinophils 5 % (0-10); Globulin 3.6 g/dL (2.4-3.5); Glucose 98 mg/dL (70-105); Lymphocytes 19 % (21-51); MDiff Complete? YES; Monocytes 21 % (0-10); Neutrophil 55 % (42-75); Platelet Morphology Comment Appears Decreased; Potassium 4.2 mmol/L (3.5-5.1); Protein, Total 6.6 g/dL (6.0-8.3); Sodium 139 mmol/L (136-145)
[2020-09-19 21:57] LABS: Acetaminophen Less than 6.0 mcg/mL (10.0-30.0); Alcohol Less than 10 mg/dL (Less than 10); Salicylate Less than 8.0 mg/dL (15.0-30.0)
[2020-09-20 05:09] LABS: SARS-CoV-2 PCR by NAA DETECTED (NotDetected)
--- NOTE | 2020-09-20 05:34 | PDOC.HHP ---
Hospitalist HPI Altered mental status History of Present Illness: This is a 50-year-old male patient with a history of liver cirrhosis and hepatic encephalopathy who presents on account of altered mental status. Patient has been on lactulose for couple of years now. Patient notes that patient's use of lactulose has been erratic for the past few days. About 3 days ago he had hip becoming more somnolent however today he became significantly altered with agitationleading them to bring him to the ED for further evaluation. His denies any associated fevers chest pain cough shortness of breath. At presentation BP was 167/99, pulse 81, respiratory 20, temperature 97.9 and saturation 98% on room air. Labs showed microcytosis however hemoglobin was 14.8. Platelet count was 66 down from 95 months ago, his ammonia was significantly elevated at 211 and toxicology showed negative salicylates acetaminophen is an alcohol level is less than 10. Serology detected Covid 19. He received 90 mils of lactulose. Hospitalist team was consulted for admission Allergies/Adverse Reactions: Allergy/AdvReac Type Severity Reaction Status Date / Time No Known Allergies Allergy Verified 10/19/19 20:49 Home Medications: Medication Instructions Recorded Confirmed Type Omeprazole 20 mg PO QAM 11/13/13 09/20/20 History Lactulose 10 GM/15ML Oral Wendy 10 gm PO BID 10/12/19 09/20/20 History [Lactulose] Magnesium Oxide [Magnesium] 400 mg PO DAILY 09/20/20 09/20/20 History Nadolol [Corgard] 20 mg PO HS 09/20/20 09/20/20 History Niacin 500 mg PO DAILY 09/20/20 09/20/20 History Rifaximin [Xifaxan] 550 mg PO BID 09/20/20 09/20/20 History Sildenafil Citrate [Viagra] 100 mg PO PRN PRN 09/20/20 09/20/20 History Spironolactone 50 mg PO DAILY 09/20/20 09/20/20 History Vitamin B Complex [Super B-50 1 cap PO DAILY 09/20/20 09/20/20 History Complex] Furosemide [Lasix] 40 mg PO DAILY 30 Days #30 tab 09/22/20 Rx Past History: PMH: Hypertension, hyperlipidemia, liver cirrhosis, PSH: Ureteral stricture surgery, ruptured intestine, Family history, none of significance. Social history: Lives at home with his and children Smokes. Stop alcohol use several days ago, no illicit drug use. Hospitalist HPI ROS ROS unobtainable: due to mental status Hospitalist Exam General - other findings: Patient not oriented, agitated in bed Eye: PERRL, anicteric sclera ENT: normocephalic atraumatic Heart: RRR, no murmur, no gallops, no rubs Respiratory: CTAB, no wheezes, no rales, no ronchi Gastrointestinal: soft, non-tender, non-distended, normal bowel sounds Gastrointestinal - other findings: Midline incision scar present. Extremities: no cyanosis, no clubbing, no edema Neurological - other findings: Spontaneous movement of all limbs. No focal deficit Psychiatric - other findings: Somnolent and agitated. Not oriented Hospitalist Results Result Diagrams: 09/20/20 05:33 09/20/20 05:33 Lab results: Laboratory Last Values WBC 5.6 thou/uL (4.8-10.8) 09/19/20 21: RBC 3.95 mill/uL (4.70-6.10) L 09/19/20 21: Hgb 14.8 g/dL (14.0-18.0) 09/19/20 21: Hct 40.9 % (42.0-52.0) L 09/19/20 21: MCV 104.0 fL (78.0-98.0) H 09/19/20 21: MCH 37.4 pg (27.0-31.0) H 09/19/20 21: MCHC 36.1 g/dL (32.0-36.0) H 09/19/20 21: RDW 14.6 % (11.5-14.5) H 09/19/20 21: Plt Count 66 thou/uL (130-400) L 09/19/20 21: MPV 7.3 fL (7.4-10.4) L 09/19/20 21:27 Neutrophils % (Manual) 55 % (42-75) 09/19/20 21: Lymphocytes % (Manual) 19 % (21-51) L 09/19/20 21: Monocytes % (Manual) 21 % (0-10) H 09/19/20 21:27 Eosinophils % (Manual) 5 % (0-10) 09/19/20 21:27 Lymphocytes # Not Reportable 09/19/20 21:27 Plt Morphology Comment Appears Decreased L 09/19/20 21:27 Sodium 139 mmol/L (136-145) 09/19/20 21:27 Potassium 4.2 mmol/L (3.5-5.1) 09/19/20 21: Chloride 111 mmol/L (98-107) H 09/19/20 21:27 Carbon Dioxide 20 mmol/L (22-29) L 09/19/20 21:27 Anion Gap 12 mmol/L (10-20) 09/19/20 21:27 BUN 20 mg/dL (8.4-25.7) 09/19/20 21: Creatinine 0.60 mg/dL (0.7-1.3) L 09/19/20 21:27 Estimated GFR (MDRD) Greater than 90 09/19/20 21: Glucose 98 mg/dL (70-105) 09/19/20 21: Calcium 8.7 mg/dL (7.8-10.44) 09/19/20 21: Total Bilirubin 4.5 mg/dL (0.2-1.2) H 09/19/20 21:27 AST 66 U/L (5-34) H 09/19/20 21:27 ALT 41 U/L (8-55) 09/19/20 21:27 Alkaline Phosphatase 151 U/L (40-110) H 09/19/20 21: Ammonia 211 umol/L (18-72) H 09/19/20 21:26 Serum Total Protein 6.6 g/dL (6.0-8.3) 09/19/20 21: Albumin 3.0 g/dL (3.5-5.0) L 09/19/20 21:27 Globulin 3.6 g/dL (2.4-3.5) H 09/19/20 21:27 Albumin/Globulin Ratio 0.8 g/dL (1.2-2.2) L 09/19/20 21:27 Salicylates Less than 8.0 mg/dL (15.0-30.0) L 09/19/20 21: Acetaminophen Less than 6.0 mcg/mL (10.0-30.0) L 09/19/20 21:27 Plasma Alcohol Less than 10 mg/dL (Less than 10) 09/19/20 21:27 SARS CoV-2 Rapid Source Nasopharyngeal Swab 09/19/20 23:49 SARS-CoV-2 RNA (EB) DETECTED (NotDetected) A* 09/19/20 23:49 Hospitalist H&P A/P Plan: This is a 50-year-old male patient with a history of hypertension and liver cirrhosis complicated by hepatic encephalopathy presents today with worsening confusion. Ammonia significantly elevatedreasons concerns for hepatic encephalopathy. He however has a positive test for Covid as well. Hepatic encephalopathy Possibly due to lactulose nonadherence Cannot rule out infection at this time although he has no leukocytosis. This could be triggered by Covid 2 Received 90 mils lactulose will continue 30 mils every 2 till he passes a stool. We will then move on to 30 mils twice daily to titrate for stools 2-3 times a day. Blood cultures drawnno antibiotic started at the moment. COVID-19 infection No respiratory signs at the moment Order chest x-ray Start zinc and vitamins once swallow screen is passed. Monitor closely. Hypertension Resume home medications once verified Liver cirrhosis Continue diuretics once verified. CODE STATUSfull code VTE prophylaxisLovenox
[2020-09-20 06:10] LABS: Anion Gap 11 mmol/L (10-20); BUN (Urea Nitrogen) 17 mg/dL (8.4-25.7); Calc. Creatinine Clearance 0 mL/min (70-130); Carbon Dioxide 21 mmol/L (22-29); Chloride 113 mmol/L (98-107); Glucose 91 mg/dL (70-105); Potassium 3.9 mmol/L (3.5-5.1); Sodium 141 mmol/L (136-145)
[2020-09-20 06:20] LABS: Hemoglobin 15.3 g/dL (14.0-18.0); Mean Corpuscular Hemoglobin 36.4 pg (27.0-31.0); Mean Platelet Volume 7.8 fL (7.4-10.4); Platelet Count 70 thou/uL (130-400); RBC Distribution Width 14.6 % (11.5-14.5); Red Blood Cell (RBC) Count 4.21 mill/uL (4.70-6.10); White Blood Cell (WBC) Count 5.1 thou/uL (4.8-10.8)
[2020-09-20 06:21] LABS: Eosinophils 7 % (0-10); Lymphocytes 34 % (21-51); MDiff Complete? YES; Monocytes 10 % (0-10); Neutrophil 49 % (42-75); Platelet Morphology Comment Appears Decreased; RBC Morphology Normal
--- NOTE | 2020-09-20 08:20 | RAD ---
XR Chest 1 View Portable History: Altered mental status. Covid pneumonia Comparison: Radiograph September 27, 2019 Findings: Lungs are clear. Heart size upper limits of normal. No confluent airspace consolidation, pn eumothorax or effusion. No acute osseous abnormality. Impression: No acute intrathoracic abnormality.
[2020-09-20] MEDS ORDERED: Enoxaparin Sodium 40 MG/0.4 ML SYRINGE SC SCH (09:00)
[2020-09-20] MEDS ORDERED: Furosemide 20 MG TAB PO PRN (13:52)
[2020-09-20] MEDS ORDERED: Ibuprofen 600 MG TAB PO PRN (13:52)
--- NOTE | 2020-09-20 13:53 | PDOC.HOSPP ---
- Subjective Encounter Date: 09/20/20 Encounter Time: 11:45 Subjective: Patient seen this morning. at bedside. His urine container shows possibly hematuria. But no noticeable blood in the urine or stool per his . Patient is admitted with hepatic encephalopathy. His mentation seems to be improving he is alert oriented x3. Last urine color being chandra couple of days ago. - Objective Vital Signs & Weight: Vital Signs (12 hours) Temp Pulse Resp BP Pulse Ox 09/20/20 08:00 97.6 F 64 18 139/79 96 Result Diagrams: 09/20/20 05:33 09/20/20 05:33 Hospitalist ROS - Medication Medications: Active Medications Generic Name Dose Route Start Last Admin Trade Name Freq PRN Reason Stop Dose Admin Enoxaparin Sodium 40 mg 09/20/20 09:00 09/20/20 09:13 Enoxaparin Sodium 40 Mg/0.4 Ml Syringe SC Not Given 0900 [facility] Hospitalist Exam Vitals: Vital Signs (12 hours) Temp Pulse Resp BP Pulse Ox 09/20/20 08:00 97.6 F 64 18 139/79 96 General Appearance: NAD, awake alert Eye: PERRL ENT: normocephalic atraumatic Neck: supple Heart: RRR, normal peripheral pulses Respiratory: CTAB, normal chest expansion Gastrointestinal: soft, normal bowel sounds Neurological: cranial nerve grossly intact, no focal deficits Psychiatric: A&O x 3 Hosp A/P - Plan 50-year-old male patient with a history of hypertension and liver cirrhosis complicated by hepatic encephalopathy presents today with worsening confusion. Ammonia significantly elevatedreasons concerns for hepatic encephalopathy. He however has a positive test for Covid as well. Hepatic encephalopathy Possibly due to lactulose nonadherence Cannot rule out infection at this time although he has no leukocytosis. This could be triggered by Covid 2 Received 90 mils lactulose will continue 30 mils every 2 till he passes a stool. We will then move on to 30 mils twice daily to titrate for stools 2-3 times a day. Blood cultures drawnno antibiotic started at the moment. COVID-19 infection -test came back positive. -He is asymptomatic. 96% sat in the room air. No respiratory signs at the moment Chest x-ray showed no acute intra thoracic abnormality. Start zinc and vitamins once swallow screen is passed. Monitor closely. Hypertension Resume home medications once verified Cirrhosis He had an hepatic doppler on January 2020 showing hepatic and splenic vasculatures -Cirrhosis day he has patent hepatic and splenic vasculature. Splenomegaly Portal hypertension----I will start him on low-dose propanolol; discontinued his home regimen of lisinopril and hydrochlorothiazide -Increase the Lasix dose and added spironolactone. -Lactulose with holding parameter if he had more than 2 bowel movements. -We will check ammonia level. Hematuria -We will follow-up with UA -Advised to encourage plenty of p.o. intake. Will repeat the UA if he has a persistent hematuria needs urology evaluation. I ordered the renal ultrasound. CODE STATUSfull code VTE prophylaxisLovenox
--- NOTE | 2020-09-20 15:31 | ULT ---
RENAL ULTRASOUND: 09/20/20 HISTORY: Gross hematuria. COMPARISON: None. FINDINGS: Limited evaluation due to body habitus and bowel gas. Grossly, no evidence of hydronephrosis. No obvious cortical masses. Right kidney measures 11.9 x 6.6 x 6.6 cm. Left kidney measures 12.5 x 5.6 x 5.8 cm. Bladder is grossly unremarkable. IMPRESSION: 1. Grossly no evidence of hydronephrosis. 2. Limited evaluation of the left and right renal cortex due to body habitus, bowel gas and shad owing. POS: PPP
[2020-09-20 15:49] VITALS: BMI 43.5
[2020-09-20] MEDS: Enoxaparin Sodium 40 MG/0.4 ML SYRINGE SC SCH (22:22)
[2020-09-21 00:54] LABS: Bacteria/HPF None Seen HPF (None Seen); Bilirubin 1+ (Negative); Blood, Urine Negative (Negative); Calcium Oxalate Crystals 4+ HPF (None Seen); Clarity Turbid (Clear); Glucose, Urine (Dipstick) Normal (Negative); Ketone, Urine Trace mg/dL (Negative); Leukocyte Negative Leu/uL (Negative); Mucous/LPF 4+ LPF (<2+); Nitrite Negative (Negative); Protein, Urine (Dipstick) 50 mg/dL (Neg-Trace); RBC/HPF 0-3 HPF (0-3); Squamous Epithelial 0-3 HPF (0-3)
[2020-09-21] MEDS: Enoxaparin Sodium 40 MG/0.4 ML SYRINGE SC SCH ×2 (07:51→22:01)
[2020-09-21] MEDS ORDERED: Furosemide 20 MG TAB PO SCH (09:00)
[2020-09-21] MEDS ORDERED: Fenofibrate Nanocrystallized 145 MG TAB PO SCH (09:00)
[2020-09-21] MEDS ORDERED: Spironolactone 25 MG TAB PO SCH (09:00)
[2020-09-21] MEDS ORDERED: Lisinopril/Hydrochlorothiazide 20/25 mg Tablet PO SCH (09:00)
--- NOTE | 2020-09-21 12:32 | PDOC.HOSPP ---
- Subjective Encounter Date: 09/21/20 Encounter Time: 10:10 Subjective: Patient is moving around in the inside his room. He is not any respiratory distress he does not require oxygen. He is having bowel movement during my rounds. Alert oriented x3. Since he is Covid positive recently will check his antibodies before discharging him home. Ammonia level trended down to 80s. Patient states that his urine becomes straw-colored no more bloody looking. - Objective Vital Signs & Weight: Vital Signs (12 hours) Temp Pulse Resp BP BP Pulse Ox 09/21/20 11:55 97.2 F L 68 18 136/63 98 09/21/20 08:00 98.1 F 72 20 129/69 99 09/21/20 03:40 97.6 F 75 14 134/60 100 Weight Weight 295 lb I&O: 09/20/20 09/21/20 09/22/20 06:59 06:59 06:59 Intake Total 240 Balance 240 Result Diagrams: 09/20/20 05:33 09/20/20 05:33 Hospitalist ROS - Medication Medications: Active Medications Generic Name Dose Route Start Last Admin Trade Name Freq PRN Reason Stop Dose Admin Enoxaparin Sodium 40 mg 09/20/20 21:00 09/21/20 07:51 Enoxaparin Sodium 40 Mg/0.4 Ml Syringe SC Not Given BID SARKIS Fenofibrate 145 mg 09/21/20 09:00 09/21/20 07:52 Fenofibrate Nanocrystallized 145 Mg Tab PO 145 mg QAM SARKIS Administration Furosemide 20 mg 09/21/20 09:00 09/21/20 07:53 Furosemide 20 Mg Tab PO 20 mg DAILY SARKIS Administration Lactulose 30 gm 09/20/20 21:00 09/21/20 07:54 Lactulose 20 Gm/30 Ml Udcup PO 30 gm BID SARKIS Administration Pantoprazole Sodium 40 mg 09/21/20 09:00 09/21/20 07:53 Pantoprazole 40 Mg Tab PO 40 mg QAM SARKIS Administration Spironolactone 12.5 mg 09/21/20 09:00 09/21/20 07:53 Spironolactone 25 Mg Tab PO 12.5 mg DAILY SARKIS Administration Hospitalist Exam Vitals: Vital Signs (12 hours) Temp Pulse Resp BP BP Pulse Ox 09/21/20 11:55 97.2 F L 68 18 136/63 98 09/21/20 08:00 98.1 F 72 20 129/69 99 09/21/20 03:40 97.6 F 75 14 134/60 100 Weight Weight 295 lb General Appearance: NAD, awake alert Eye: PERRL ENT: normocephalic atraumatic Neck: supple Heart: RRR, normal peripheral pulses Respiratory: CTAB, normal chest expansion Gastrointestinal: soft, normal bowel sounds Neurological: no focal deficits Psychiatric: A&O x 3 Hosp A/P - Plan 50-year-old male patient with a history of hypertension and liver cirrhosis complicated by hepatic encephalopathy presents today with worsening confusion. Ammonia significantly elevatedreasons concerns for hepatic encephalopathy. He however has a positive test for Covid as well. Hepatic encephalopathy Possibly due to lactulose nonadherence Cannot rule out infection at this time although he has no leukocytosis. This could be triggered by Covid 2 Received 90 mils lactulose will continue 30 mils every 2 till he passes a stool. We will then move on to 30 mils twice daily to titrate for stools 2-3 times a day. Blood cultures drawnno antibiotic started at the moment. COVID-19 infection -test came back positive. -He is asymptomatic. 96% sat in the room air. No respiratory signs at the moment Chest x-ray showed no acute intra thoracic abnormality. Start zinc and vitamins once swallow screen is passed. Monitor closely. Hypertension Resume home medications once verified Cirrhosis He had an hepatic doppler on January 2020 showing hepatic and splenic vasculatures --patent hepatic and splenic vasculature. -Splenomegaly Portal hypertension----I will start him on low-dose nadololl; discontinued his home regimen of lisinopril and hydrochlorothiazide -Increase the Lasix dose and added spironolactone.- -Lactulose and rifaximin -Lactulose with holding parameter if he had more than 2 bowel movements. - Hematuria--resolved on its own. -We will follow-up with UA -Advised to encourage plenty of p.o. intake. Will repeat the UA if he has a persistent hematuria needs urology evaluation. I ordered the renal ultrasound.--- No hydronephrosis. It is resolved. CODE STATUSfull code VTE prophylaxisLovenox
[2020-09-21 17:33] LABS: SARS-CoV-2 IgG Ab Reactive (NonReactive)
[2020-09-21] MEDS ORDERED: Rifaximin 550 MG TAB PO SCH (21:00)
[2020-09-21] MEDS ORDERED: Nadolol 40 MG TAB PO SCH (21:00)
[2020-09-22 08:07] VITALS: BP 147/63; TEMP 98.1
[2020-09-22] MEDS ORDERED: Magnesium Oxide 400 MG TAB PO SCH (09:00)
--- NOTE | 2020-09-22 11:12 | PDOC.DS.DS ---
Provider Date of Admission: 09/19/20 23:12 Admitting Provider: Graham Anthony MD Primary Care Physician: Michele Hobbs, DO Course Hospital Course: 50-year-old male patient with a history of hypertension and liver cirrhosis complicated by hepatic encephalopathy presents today with worsening confusion. Ammonia significantly elevatedreasons concerns for hepatic encephalopathy. He however has a positive test for Covid as well. Hepatic encephalopathy -due to lactulose nonadherence Blood cultures drawncoagulase-negative staph aureus 1 out of 2 positive possibly contaminant -clinically he has no sign of any infection. COVID-19 infection -test came back positive. -He is asymptomatic. 96% sat in the room air. -Chest x-ray showed no acute intra thoracic abnormality. Hypertension Resume home medications once verified Cirrhosis He had an hepatic doppler on January 2020 showing hepatic and splenic vasculatures --patent hepatic and splenic vasculature. -Splenomegaly Portal hypertension--- - on low-dose nadololl; discontinued his home regimen of lisinopril and hydrochlorothiazide -Increase the Lasix dose and added spironolactone.- -Lactulose and rifaximin - Hematuria--resolved on its own. -renal ultrasound.--- No hydronephrosis. It is resolved. Clinically stable to be discharged home today. Discharge time over 30 minutes. Resuscitation Status: 09/20/20 00:05 Resuscitation Status Routine Resuscitation Status: FULL: Full Resuscitation Lab Results: 09/20/20 05:33 09/20/20 05:33 Abnormal Lab Results - Last 48 hrs 09/20/20 14:12: Ammonia 83 H 09/20/20 22:45: Urine Clarity Turbid A, Ur Specific [place] 1.040 H, Urine Protein 50 A, Urine Ketones Trace A, Urine Bilirubin 1+ A, Urine Urobilinogen 8.0 A, Urine WBC 7-10 A, Calcium Oxalate Crystal 4+ A, Hyaline Casts 11-20 A, Urine Mucus 4+ A Microbiology - Entire Visit 09/20/20 00:22 Venous blood - Right Hand Blood Culture - Final Coagulase Neg Staphylococcus 09/20/20 00:22 Venous blood - Left Arm Blood Culture - Preliminary Specimen has been received and culture in progress. No Growth to date. Vitals: Vital Signs (12 hours) Temp Pulse Resp BP BP Pulse Ox 09/22/20 07:30 98.1 F 71 20 147/63 H 98 02/22/21 03:44 98.4 F 78 20 119/59 L 98 09/22/20 00:00 98.7 F 89 20 127/58 L 97 Weight Weight 295 lb Physical Exam: The patient was seen and examined on the day of discharge. Well he has no mental instability. He is quite excited to go home. He is alert oriented x4 he had a bowel movement this morning. He is having his breakfast. probably will give him a ride home. Plan Prescriptions: Furosemide [Lasix] 40 mg PO DAILY 30 Days #30 tab Home Medications: Medication Instructions Recorded Confirmed Type Omeprazole 20 mg PO QAM 11/13/13 09/20/20 History Lactulose 10 GM/15ML Oral Wendy 10 gm PO BID 10/12/19 09/20/20 History [Lactulose] Magnesium Oxide [Magnesium] 400 mg PO DAILY 09/20/20 09/20/20 History Nadolol [Corgard] 20 mg PO HS 09/20/20 09/20/20 History Niacin 500 mg PO DAILY 09/20/20 09/20/20 History Rifaximin [Xifaxan] 550 mg PO BID 09/20/20 09/20/20 History Sildenafil Citrate [Viagra] 100 mg PO PRN PRN 09/20/20 09/20/20 History Spironolactone 50 mg PO DAILY 09/20/20 09/20/20 History Vitamin B Complex [Super B-50 1 cap PO DAILY 09/20/20 09/20/20 History Complex] Furosemide [Lasix] 40 mg PO DAILY 30 Days #30 tab 09/22/20 Rx Allergies: No Known Allergies Allergy (Verified 10/19/19 20:49) per pt Activity:: Activity as Tolerated Nourishment:: Regular Diet Referrals: Michele Hobbs DO [Primary Care Provider] - Disposition: HOME Quality CORE MEASURES:: N/A
== END 2020-09-22 13:02 | disposition home or self-care (01) | DRG 441 ==
LOC: ERS 21:07 → ERHOLD 23:12 → 2SE 09-20 14:20 → 2SW 09-21 17:19
PROVIDERS: ADMIT Student in an Organized Health Care Education/Training Program; ATTEND Internal Medicine
DX: K72.90 Hepatic failure, unspecified without coma (principal); U07.1 COVID-19; K76.6 Portal hypertension; I10 Essential (primary) hypertension; E78.5 Hyperlipidemia, unspecified; E78.00 Pure hypercholesterolemia, unspecified; N20.0 Calculus of kidney; K74.60 Unspecified cirrhosis of liver; R31.9 Hematuria, unspecified; Z90.49 Acquired absence of other specified parts of digestive tract; Z87.891 Personal history of nicotine dependence; Z79.899 Other long term (current) drug therapy; Z91.14 Patient's other noncompliance with medication regimen
CPT/HCPCS: 36415; 71045; 76770; 80048; 80053; 80307; 81003; 81015; 82140; 85025; 86769; 87040; 87149; 87635; 93005; J1650; U0003; U0005

== ENCOUNTER 2021-01-27 18:10 | Inpatient (IN) | payer BC ==
[~2021-01-27 18:10] MED LIST changes: -FLU VACC QS2019-20(6MOS UP)/PF 60 MCG/0.5 ML SYRINGE IM ONE; +Iopamidol-370 76% 500 ML 1 ML ONE
[2021-01-27] MEDS ORDERED: Ondansetron ODT 4 MG TAB ONE (19:27)
[2021-01-27] MEDS ORDERED: Ondansetron PF 4 MG/2 ML Vial ONE (19:35)
[2021-01-27] MEDS ORDERED: Morphine 4 MG/ML VIAL ONE ×2 (19:46→21:22)
[2021-01-27 20:02] LABS: Hemoglobin 17.6 g/dL (14.0-18.0); Mean Corpuscular HGB CONC 35.2 g/dL (32.0-36.0); Mean Corpuscular Hemoglobin 36.1 pg (27.0-31.0); RBC Distribution Width 14.8 % (11.5-14.5); Red Blood Cell (RBC) Count 4.86 mill/uL (4.70-6.10); White Blood Cell (WBC) Count 10.3 thou/uL (4.8-10.8)
[2021-01-27 20:27] LABS: Band 6 % (5-11); Lymphocytes 9 % (21-51); MDiff Complete? YES; Macrocytosis SLIGHT = 6-15 cells (100X) (0-5/hpf); Mean Platelet Volume 8.8 fL (7.4-10.4); Monocytes 5 % (0-10); Neutrophil 79 % (42-75); Platelet Count 65 thou/uL (130-400); Platelet Morphology Comment Appears Decreased
[2021-01-27 21:33] LABS: INR-International Normal Ratio 1.7; PTT 44.1 sec (22.9-36.1); Prothrombin Time 20.5 sec (12.0-14.7)
[2021-01-27 22:23] LABS: Bacteria/HPF None Seen HPF (None Seen); Bilirubin Negative (Negative); Blood, Urine Trace (Negative); Clarity Clear (Clear); Glucose, Urine (Dipstick) Normal (Negative); Ketone, Urine Negative (Negative); Leukocyte Negative Leu/uL (Negative); Mucous/LPF Rare LPF (<2+); Nitrite Negative (Negative); Protein, Urine (Dipstick) Negative (Neg-Trace); Squamous Epithelial 0-3 HPF (0-3); Urobilinogen Normal mg/dL (Less than 2); WBC/HPF 0-3 HPF (0-3); pH, Urine 5.5 (5.0-9.0)
[2021-01-27 22:25] LABS: Specific Gravity, Urine Greater than 1.060 (1.002-1.036)
[2021-01-27 23:03] LABS: ALT (SGPT) 33 U/L (8-55); AST (SGOT) 39 U/L (5-34); Alkaline Phosphatase 140 U/L (40-110); Anion Gap 15 mmol/L (10-20); BUN (Urea Nitrogen) 16 mg/dL (8.4-25.7); Bilirubin, Total 6.4 mg/dL (0.2-1.2); CK (CPK) 75 U/L (30-200); Calc. Creatinine Clearance 0 mL/min (70-130); Calcium 9.2 mg/dL (7.8-10.44); Carbon Dioxide 17 mmol/L (22-29); Chloride 108 mmol/L (98-107); Glucose 111 mg/dL (70-105); Lipase 27 U/L (8-78); Potassium 4.1 mmol/L (3.5-5.1); Sodium 136 mmol/L (136-145)
[2021-01-27 23:37] LABS: Acetaminophen Less than 6.0 mcg/mL (10.0-30.0); Alcohol Less than 10 mg/dL (Less than 10); Salicylate Less than 8.0 mg/dL (15.0-30.0)
[2021-01-28] MEDS ORDERED: Ondansetron PF 4 MG/2 ML Vial IVP PRN (00:42)
[2021-01-28] MEDS ORDERED: Acetaminophen 325 MG TAB PO PRN (00:42)
[2021-01-28 01:32] VITALS: BMI 44.9
[2021-01-28] MEDS: Sodium Chloride 0.9% 1,000 ML IV SCH ×2 (01:46→11:47)
[2021-01-28 07:32] LABS: #Eosinphils 0.3 thou/uL (0.0-0.7); #Lymphocytes 1.2 thou/uL (1.20-3.40); #Neutrophils 6.3 thou/uL (1.40-6.50); %Basophils 0.2 % (0.0-1.0); %Eosinophils 2.9 % (0.0-10.0); %Lymphocytes 14.1 % (21.0-51.0); %Monocytes 11.6 % (0.0-10.0); %Neutrophils 71.2 % (42.0-75.0); Hemoglobin 14.2 g/dL (14.0-18.0); Mean Corpuscular HGB CONC 35.7 g/dL (32.0-36.0); Mean Corpuscular Hemoglobin 37.2 pg (27.0-31.0); Mean Platelet Volume 7.8 fL (7.4-10.4); Platelet Count 58 thou/uL (130-400); RBC Distribution Width 14.5 % (11.5-14.5); Red Blood Cell (RBC) Count 3.83 mill/uL (4.70-6.10); White Blood Cell (WBC) Count 8.8 thou/uL (4.8-10.8)
[2021-01-28 07:37] LABS: Anion Gap 10 mmol/L (10-20); BUN (Urea Nitrogen) 16 mg/dL (8.4-25.7); Calc. Creatinine Clearance 281 mL/min (70-130); Calcium 8.3 mg/dL (7.8-10.44); Carbon Dioxide 19 mmol/L (22-29); Chloride 111 mmol/L (98-107); Glucose 84 mg/dL (70-105); Potassium 3.8 mmol/L (3.5-5.1); Sodium 136 mmol/L (136-145)
[2021-01-28] MEDS ORDERED: MD-Gastroview 120 ML BOT ONE (09:05)
[2021-01-29 06:32] LABS: Band 4 % (5-11); Eosinophils 5 % (0-10); Hemoglobin 13.4 g/dL (14.0-18.0); Lymphocytes 23 % (21-51); MDiff Complete? YES; Mean Corpuscular HGB CONC 35.6 g/dL (32.0-36.0); Mean Corpuscular Hemoglobin 36.7 pg (27.0-31.0); Mean Platelet Volume 8.1 fL (7.4-10.4); Metamyelocyte 2 % (0-0); Monocytes 12 % (0-10); Neutrophil 52 % (42-75); Platelet Count 52 thou/uL (130-400); Platelet Morphology Comment Appears Decreased; RBC Distribution Width 14.4 % (11.5-14.5); Red Blood Cell (RBC) Count 3.65 mill/uL (4.70-6.10); White Blood Cell (WBC) Count 6.4 thou/uL (4.8-10.8)
[2021-01-29 06:34] LABS: Anion Gap 12 mmol/L (10-20); BUN (Urea Nitrogen) 16 mg/dL (8.4-25.7); Calc. Creatinine Clearance 267 mL/min (70-130); Carbon Dioxide 18 mmol/L (22-29); Chloride 108 mmol/L (98-107); Glucose 116 mg/dL (70-105); Potassium 3.5 mmol/L (3.5-5.1); Sodium 134 mmol/L (136-145)
[2021-01-29 07:43] VITALS: BP 117/71; TEMP 98
[2021-01-29] MEDS ORDERED: Spironolactone 25 MG TAB PO SCH (08:00)
[2021-01-29] MEDS ORDERED: Stress 600 With Zinc 1 TAB PO SCH (09:00)
[2021-01-29] MEDS ORDERED: Magnesium Oxide 400 MG TAB PO SCH (09:00)
[2021-01-29] MEDS ORDERED: Furosemide 40 MG TAB PO SCH (09:00)
[2021-01-29] MEDS ORDERED: Nadolol 40 MG TAB PO SCH (09:00)
== END 2021-01-29 10:37 | disposition home or self-care (01) | DRG 389 ==
LOC: ERS 18:10 → T4-B 23:05 → ERHOLD 23:33 → T4-B 01-28 01:24
PROVIDERS: ADMIT Internal Medicine; ATTEND Internal Medicine
DX: K91.30 Postprocedural intestinal obstruction, unspecified as to partial versus complete (principal); Z68.41 Body mass index [BMI] 40.0-44.9, adult; D68.9 Coagulation defect, unspecified; K56.50 Intestinal adhesions [bands], unspecified as to partial versus complete obstruction; I10 Essential (primary) hypertension; E78.5 Hyperlipidemia, unspecified; K74.60 Unspecified cirrhosis of liver; Y83.8 Other surgical procedures as the cause of abnormal reaction of the patient, or of later complication, without mention of misadventure at the time of the procedure; E66.01 Morbid (severe) obesity due to excess calories; D69.59 Other secondary thrombocytopenia; F17.290 Nicotine dependence, other tobacco product, uncomplicated; Z79.899 Other long term (current) drug therapy; Z90.49 Acquired absence of other specified parts of digestive tract; Z98.890 Other specified postprocedural states
CPT/HCPCS: 36415; 71045; 74177; 74250; 80048; 80053; 80307; 81003; 81015; 82140; 82550; 83605; 83690; 85025; 85610; 85730; 96374; 96375; 96376; J2270; J2405; Q0162; Q9963; Q9967

== ENCOUNTER 2021-05-21 07:49 | Inpatient (IN) | payer BC ==
[2021-05-21] MEDS ORDERED: ceFAZolin 2 GM/DEX 5% 100 ML BAG ONE (08:26)
[2021-05-21 08:41] LABS: #Lymphocytes 0.9 thou/uL (1.20-3.40); #Monocytes 1.1 thou/uL (0.11-0.59); #Neutrophils 12.9 thou/uL (1.40-6.50); %Basophils 0.1 % (0.0-1.0); %Eosinophils 0.1 % (0.0-10.0); %Lymphocytes 5.9 % (21.0-51.0); %Monocytes 7.3 % (0.0-10.0); %Neutrophils 86.5 % (42.0-75.0); Hemoglobin 13.9 g/dL (14.0-18.0); Mean Corpuscular HGB CONC 34.4 g/dL (32.0-36.0); Mean Corpuscular Volume 98.8 fL (78.0-98.0); Platelet Count 60 thou/uL (130-400); RBC Distribution Width 14.2 % (11.5-14.5); Red Blood Cell (RBC) Count 4.08 mill/uL (4.70-6.10); White Blood Cell (WBC) Count 14.9 thou/uL (4.8-10.8)
[2021-05-21 08:58] LABS: ALT (SGPT) 29 U/L (8-55); AST (SGOT) 38 U/L (5-34); Albumin 2.5 g/dL (3.5-5.0); Alkaline Phosphatase 104 U/L (40-110); Anion Gap 11 mmol/L (10-20); BUN (Urea Nitrogen) 30 mg/dL (8.4-25.7); Bilirubin, Total 5.1 mg/dL (0.2-1.2); Calc. Creatinine Clearance 0 mL/min (70-130); Calcium 8.7 mg/dL (7.8-10.44); Carbon Dioxide 17 mmol/L (22-29); Chloride 104 mmol/L (98-107); Globulin 3.4 g/dL (2.4-3.5); Glucose 93 mg/dL (70-105); Potassium 3.5 mmol/L (3.5-5.1); Protein, Total 5.9 g/dL (6.0-8.3); Sodium 128 mmol/L (136-145)
[2021-05-21] MEDS ORDERED: CEFAZOLIN 2 GM in Sodium Chloride 0.9% 100 ML IVPB SCH (09:00)
[2021-05-21] MEDS ORDERED: Vancomycin 1 GM/200 ML BAG ONE (09:37)
[2021-05-21 09:58] LABS: INR-International Normal Ratio 2.4; PTT 54.9 sec (22.9-36.1)
[2021-05-21] MEDS ORDERED: Senokot S 8.6-50 MG TAB PO PRN (10:01)
[2021-05-21] MEDS ORDERED: Ondansetron PF 4 MG/2 ML Vial IVP PRN (10:01)
[2021-05-21] MEDS ORDERED: Piperacillin/Tazobactam 3.375 GM in Sodium Chloride 0.9% 100 ML IVPB SCH ×2 (10:01→13:00)
[2021-05-21] MEDS ORDERED: Calcium Carbonate 500 MG ChewTAB PO PRN (10:01)
[2021-05-21] MEDS ORDERED: Bisacodyl 10 MG SUPP PR PRN (10:01)
[2021-05-21] MEDS ORDERED: Guaifenesin DM 100-10/5 ML UDCUP PO PRN (10:01)
[2021-05-21] MEDS ORDERED: Acetaminophen 325 MG TAB PO PRN (10:01)
[2021-05-21 12:02] LABS: SARS-CoV-2 NAA Rapid Test Not Detected (NotDetected)
[2021-05-21 12:49] LABS: Lactic Acid 2.3 mmol/L (0.5-2.2)
[2021-05-21] MEDS ORDERED: Rifaximin 550 MG TAB PO SCH (13:00)
[2021-05-21] MEDS ORDERED: Vancomycin 1 GM in Premix Bag 1 BAG IVPB SCH (14:00)
[2021-05-21] MEDS: Piperacillin/Tazobactam 3.375 GM in Sodium Chloride 0.9% 100 ML IVPB SCH (17:38)
[2021-05-21] MEDS ORDERED: Vancomycin HCl 1 GM in Sodium Chloride 0.9% 250 ML 250 ML IVPB SCH (21:00)
[2021-05-21] MEDS: Rifaximin 550 MG TAB PO SCH (21:06)
[2021-05-21] MEDS: VANCOMYCIN 2 GRAM/400 ML BAG 2 GM in Premix Bag 1 BAG IVPB SCH (23:18)
[2021-05-22] MEDS: Piperacillin/Tazobactam 3.375 GM in Sodium Chloride 0.9% 100 ML IVPB SCH ×3 (01:15→16:56)
[2021-05-22] MEDS ORDERED: VANCOMYCIN 2 GRAM/400 ML BAG 2 GM in Premix Bag 1 BAG IVPB SCH (02:00)
[2021-05-22 03:50] VITALS: BMI 47.9
[2021-05-22 07:47] LABS: ALT (SGPT) 25 U/L (8-55); AST (SGOT) 31 U/L (5-34); Albumin 2.5 g/dL (3.5-5.0); Alkaline Phosphatase 109 U/L (40-110); Anion Gap 11 mmol/L (10-20); BUN (Urea Nitrogen) 19 mg/dL (8.4-25.7); Bilirubin, Total 4.1 mg/dL (0.2-1.2); Calc. Creatinine Clearance 246 mL/min (70-130); Calcium 8.3 mg/dL (7.8-10.44); Carbon Dioxide 19 mmol/L (22-29); Chloride 108 mmol/L (98-107); Globulin 3.1 g/dL (2.4-3.5); Glucose 108 mg/dL (70-105); Potassium 3.9 mmol/L (3.5-5.1); Protein, Total 5.6 g/dL (6.0-8.3); Sodium 134 mmol/L (136-145)
[2021-05-22] MEDS: Enoxaparin Sodium 40 MG/0.4 ML SYRINGE SC SCH (08:29)
[2021-05-22] MEDS: Rifaximin 550 MG TAB PO SCH ×2 (08:30→19:53)
[2021-05-22] MEDS: Nadolol 40 MG TAB PO SCH (08:31)
[2021-05-22 10:10] LABS: Hemoglobin 13.4 g/dL (14.0-18.0); MDiff Complete? YES; Mean Platelet Volume 8.3 fL (7.4-10.4); Platelet Count 54 thou/uL (130-400); RBC Distribution Width 14.3 % (11.5-14.5); Red Blood Cell (RBC) Count 3.83 mill/uL (4.70-6.10); White Blood Cell (WBC) Count 12.3 thou/uL (4.8-10.8)
[2021-05-22 10:11] LABS: Band 22 % (5-11); Eosinophils 5 % (0-10); Lymphocytes 12 % (21-51); Monocytes 3 % (0-10); Neutrophil 53 % (42-75); Platelet Morphology Comment Appears Decreased; RBC Morphology Normal; Reactive Lymphocytes 5 % (0-10)
[2021-05-22] MEDS: VANCOMYCIN 2 GRAM/400 ML BAG 2 GM in Premix Bag 1 BAG IVPB SCH ×2 (12:01→23:55)
[2021-05-22 23:08] LABS: Vancomycin, Trough 8.9 ug/mL
[2021-05-23] MEDS: Piperacillin/Tazobactam 3.375 GM in Sodium Chloride 0.9% 100 ML IVPB SCH ×2 (02:56→09:10)
[2021-05-23] MEDS ORDERED: VANCOMYCIN 2 GRAM/400 ML BAG 2 GM in Premix Bag 1 BAG IVPB SCH ×2 (08:00→13:00)
[2021-05-23 09:09] VITALS: TEMP 97.9
[2021-05-23] MEDS: Enoxaparin Sodium 40 MG/0.4 ML SYRINGE SC SCH (09:09)
[2021-05-23] MEDS: Rifaximin 550 MG TAB PO SCH (09:10)
[2021-05-23] MEDS: Nadolol 40 MG TAB PO SCH (09:10)
[2021-05-23 11:29] VITALS: BP 136/73
== END 2021-05-23 11:50 | disposition home or self-care (01) | DRG 603 ==
LOC: ERS 07:49 → T4-A 11:55
PROVIDERS: ADMIT Internal Medicine; ATTEND Family Medicine
DX: L03.115 Cellulitis of right lower limb (principal); Z68.41 Body mass index [BMI] 40.0-44.9, adult; R94.5 Abnormal results of liver function studies; E80.6 Other disorders of bilirubin metabolism; K74.69 Other cirrhosis of liver; E66.01 Morbid (severe) obesity due to excess calories; D69.6 Thrombocytopenia, unspecified; Z20.822 Contact with and (suspected) exposure to COVID-19; K75.81 Nonalcoholic steatohepatitis (NASH); Z90.49 Acquired absence of other specified parts of digestive tract; Z87.891 Personal history of nicotine dependence
CPT/HCPCS: 36415; 80053; 80202; 82140; 83605; 85025; 85610; 85730; 87040; 96365; 96366; 96367; J1650; J2543; J3370; J3490; U0002

== ENCOUNTER 2021-06-27 13:10 | Day surgery (SDC) | payer BC ==
[2021-06-27] MEDS ORDERED: Sterile Water 10 ML ONE (16:12)
[2021-06-27] MEDS ORDERED: ePHEDrine 50 MG/ML VIAL ONE (17:18)
[2021-06-27] MEDS ORDERED: PROPOFOL 200 MG/20 ML VIAL ONE (17:18)
[2021-06-27] MEDS ORDERED: PHENYLEPHRINE-NS 100 MCG/ML 10 ML SYRINGE ONE (17:18)
[2021-06-27] MEDS ORDERED: Ondansetron PF 4 MG/2 ML Vial ONE (17:18)
[2021-06-27] MEDS ORDERED: Rocuronium Bromide 10 MG/ML (10ML VIAL) ONE (17:18)
[2021-06-27] MEDS ORDERED: Succinylcholine 200 MG/10 ml SYRINGE FS ONE (17:18)
[2021-06-27] MEDS ORDERED: Lidocaine 1% PF 5 ML VIAL ONE (17:18)
== END 2021-06-27 19:02 | disposition home or self-care (01) ==
LOC: ERS 13:10 → SDC 16:57
PROVIDERS: ATTEND Internal Medicine
PROC: 0DC18ZZ Extirpation of Matter from Upper Esophagus, Via Natural or Artificial Opening Endoscopic (ICD-10-PCS; principal; 2021-06-27)
DX: T18.128A Food in esophagus causing other injury, initial encounter (principal); K75.81 Nonalcoholic steatohepatitis (NASH); K74.60 Unspecified cirrhosis of liver; I85.10 Secondary esophageal varices without bleeding; K76.6 Portal hypertension; K31.89 Other diseases of stomach and duodenum; K31.7 Polyp of stomach and duodenum; K72.90 Hepatic failure, unspecified without coma; I10 Essential (primary) hypertension; E78.5 Hyperlipidemia, unspecified; F17.290 Nicotine dependence, other tobacco product, uncomplicated; Z79.899 Other long term (current) drug therapy
CPT/HCPCS: 70490; J1610

== ENCOUNTER 2022-02-28 20:43 | Observation (INO) | payer BC ==
[~2022-02-28 20:43] MED LIST changes: +Iopamidol 370 76% 100 ML VIAL ONE; -Iopamidol-370 76% 500 ML 1 ML ONE
[2022-02-28 22:13] LABS: ALT (SGPT) 24 U/L (8-55); AST (SGOT) 42 U/L (5-34); Albumin 2.3 g/dL (3.5-5.0); Alkaline Phosphatase 127 U/L (40-110); Anion Gap 13 mmol/L (10-20); BUN (Urea Nitrogen) 14 mg/dL (8.4-25.7); Bilirubin, Total 6.3 mg/dL (0.2-1.2); Calc. Creatinine Clearance 0 mL/min (70-130); Calcium 8.2 mg/dL (7.8-10.44); Carbon Dioxide 28 mmol/L (22-29); Chloride 101 mmol/L (98-107); Estimated GFR 89; Globulin 3.3 g/dL (2.4-3.5); Glucose 110 mg/dL (70-105); Lipase 26 U/L (8-78); Protein, Total 5.6 g/dL (6.0-8.3); Sodium 139 mmol/L (136-145)
[2022-02-28 22:14] LABS: Hemoglobin 10.9 g/dL (14.0-18.0); Mean Corpuscular HGB CONC 34.8 g/dL (32.0-36.0); Mean Corpuscular Hemoglobin 34.9 pg (27.0-31.0); Red Blood Cell (RBC) Count 3.12 mill/uL (4.70-6.10); White Blood Cell (WBC) Count 4.5 thou/uL (4.8-10.8)
[2022-02-28 22:18] LABS: Mean Platelet Volume 7.3 fL (7.4-10.4); Platelet Count 59 thou/uL (130-400)
[2022-02-28 22:19] LABS: Band 1 % (5-11); Eosinophils 1 % (0-10); Lymphocytes 17 % (21-51); MDiff Complete? YES; Monocytes 15 % (0-10); Neutrophil 64 % (42-75); Platelet Morphology Comment Appears Decreased; Reactive Lymphocytes 1 % (0-10)
[2022-02-28 22:35] LABS: Potassium 2.9 mmol/L (3.5-5.1)
[2022-02-28] MEDS ORDERED: Potassium Chloride 20 MEQ/100 ML PREMIX BAG ONE (23:29)
[2022-03-01 00:04] LABS: Magnesium 0.9 mg/dL (1.6-2.6)
[2022-03-01 01:19] LABS: Bilirubin Negative (Negative); Blood, Urine Negative (Negative); Clarity Clear (Clear); Glucose, Urine (Dipstick) Normal (Negative); Ketone, Urine Negative (Negative); Leukocyte Negative Leu/uL (Negative); Nitrite Negative (Negative); Protein, Urine (Dipstick) Negative (Neg-Trace); Urobilinogen Normal mg/dL (Less than 2)
[2022-03-01] MEDS ORDERED: Magnesium 2 GM/50 ML(in water) 2 GM in Premix Bag 1 BAG IVPB SCH ×2 (01:30→22:30)
[2022-03-01 05:09] LABS: Anion Gap 14 mmol/L (10-20); BUN (Urea Nitrogen) 14 mg/dL (8.4-25.7); Calc. Creatinine Clearance 0 mL/min (70-130); Calcium 8.2 mg/dL (7.8-10.44); Carbon Dioxide 26 mmol/L (22-29); Chloride 102 mmol/L (98-107); Estimated GFR 107; Glucose 84 mg/dL (70-105); Magnesium 1.3 mg/dL (1.6-2.6); Sodium 139 mmol/L (136-145)
[2022-03-01 05:22] LABS: Potassium 2.9 mmol/L (3.5-5.1)
[2022-03-01] MEDS ORDERED: Magnesium 2 GM/50 ML BAG (IN WATER) ONE (05:43)
[2022-03-01] MEDS ORDERED: Potassium Chloride 20 MEQ/100 ML PREMIX BAG ONE (05:43)
[2022-03-01] MEDS ORDERED: Ondansetron ODT 4 MG TAB PO PRN (11:05)
[2022-03-01] MEDS ORDERED: Acetaminophen 325 MG TAB PO PRN (11:05)
[2022-03-01] MEDS ORDERED: Electrolyte Replacement Protocol 1 EACH FS SCH (11:15)
[2022-03-01] MEDS ORDERED: Furosemide 40 MG/4 ML VIAL SLOW IVP SCH (12:00)
[2022-03-01] MEDS ORDERED: cefTRIAXone\\ROCEPHIN 2 GM VIAL ONE (12:21)
[2022-03-01 12:50] LABS: INR-International Normal Ratio 1.9; Prothrombin Time 22.4 sec (12.0-14.7)
[2022-03-01 13:22] LABS: Anion Gap 14 mmol/L (10-20); BUN (Urea Nitrogen) 11 mg/dL (8.4-25.7); Calc. Creatinine Clearance 0 mL/min (70-130); Calcium 8.6 mg/dL (7.8-10.44); Carbon Dioxide 27 mmol/L (22-29); Chloride 102 mmol/L (98-107); Estimated GFR 108; Glucose 97 mg/dL (70-105); Magnesium 1.5 mg/dL (1.6-2.6); Potassium 3.2 mmol/L (3.5-5.1); Sodium 140 mmol/L (136-145)
[2022-03-01] MEDS: cefTRIAXone\\ROCEPHIN 2 GM in Sodium Chloride 0.9% 100 ML IVPB SCH (13:40)
[2022-03-01] MEDS ORDERED: Furosemide 40 MG/4 ML VIAL ONE (13:40)
[2022-03-01] MEDS ORDERED: Torsemide 20 MG TAB PO SCH (14:00)
[2022-03-01] MEDS: Rifaximin 550 MG TAB PO SCH (20:55)
[2022-03-01 21:26] VITALS: BMI 46.9
[2022-03-01] MEDS ORDERED: Potassium Chloride 20 MEQ TAB PO SCH (22:30)
[2022-03-02 03:06] LABS: Band 11 % (5-11); Hemoglobin 10.4 g/dL (14.0-18.0); Lymphocytes 24 % (21-51); MDiff Complete? YES; Macrocytosis SLIGHT = 6-15 cells (100X) (0-5/hpf); Mean Corpuscular HGB CONC 33.7 g/dL (32.0-36.0); Mean Corpuscular Hemoglobin 34.3 pg (27.0-31.0); Mean Platelet Volume 7.6 fL (7.4-10.4); Monocytes 6 % (0-10); Neutrophil 59 % (42-75); Platelet Count 56 thou/uL (130-400); Platelet Morphology Comment Appears Decreased; RBC Distribution Width 14.1 % (11.5-14.5); Red Blood Cell (RBC) Count 3.04 mill/uL (4.70-6.10); White Blood Cell (WBC) Count 3.7 thou/uL (4.8-10.8)
[2022-03-02 03:15] LABS: ALT (SGPT) 22 U/L (8-55); AST (SGOT) 35 U/L (5-34); Albumin 2.1 g/dL (3.5-5.0); Alkaline Phosphatase 115 U/L (40-110); Anion Gap 10 mmol/L (10-20); BUN (Urea Nitrogen) 12 mg/dL (8.4-25.7); Bilirubin, Total 4.9 mg/dL (0.2-1.2); Calc. Creatinine Clearance 249 mL/min (70-130); Calcium 8.3 mg/dL (7.8-10.44); Carbon Dioxide 27 mmol/L (22-29); Chloride 104 mmol/L (98-107); Estimated GFR 110; Glucose 101 mg/dL (70-105); Magnesium 1.6 mg/dL (1.6-2.6); Potassium 3.1 mmol/L (3.5-5.1); Protein, Total 5.1 g/dL (6.0-8.3); Sodium 138 mmol/L (136-145)
[2022-03-02] MEDS ORDERED: Magnesium 2 GM/50 ML(in water) 2 GM in Premix Bag 1 BAG IVPB SCH (08:00)
[2022-03-02] MEDS ORDERED: Potassium Chloride 20 MEQ TAB PO SCH ×2 (08:00→12:00)
[2022-03-02] MEDS ORDERED: Spironolactone 25 MG TAB PO SCH (08:00)
[2022-03-02] MEDS: Rifaximin 550 MG TAB PO SCH (08:56)
[2022-03-02] MEDS ORDERED: Torsemide 20 MG TAB PO SCH ×2 (09:00)
[2022-03-02] MEDS: cefTRIAXone\\ROCEPHIN 2 GM in Sodium Chloride 0.9% 100 ML IVPB SCH (11:59)
[2022-03-02 15:41] VITALS: BP 141/67; TEMP 97.3
[2022-03-02 16:01] LABS: Anion Gap 11 mmol/L (10-20); BUN (Urea Nitrogen) 11 mg/dL (8.4-25.7); Calc. Creatinine Clearance 229 mL/min (70-130); Calcium 8.4 mg/dL (7.8-10.44); Carbon Dioxide 28 mmol/L (22-29); Chloride 102 mmol/L (98-107); Estimated GFR 107; Glucose 106 mg/dL (70-105); Potassium 3.3 mmol/L (3.5-5.1); Sodium 138 mmol/L (136-145)
== END 2022-03-02 17:48 | disposition home or self-care (01) ==
LOC: ERS 20:43 → ERHOLD 03-01 06:09 → 2SW 03-01 18:56
PROVIDERS: ADMIT Family Medicine; ATTEND Family Medicine
DX: R10.30 Lower abdominal pain, unspecified (principal); E87.6 Hypokalemia; I10 Essential (primary) hypertension; E78.5 Hyperlipidemia, unspecified; K74.60 Unspecified cirrhosis of liver; G47.30 Sleep apnea, unspecified; I25.2 Old myocardial infarction; K76.6 Portal hypertension; E83.42 Hypomagnesemia; D69.6 Thrombocytopenia, unspecified; E80.6 Other disorders of bilirubin metabolism; R60.0 Localized edema; Z79.899 Other long term (current) drug therapy; Z20.822 Contact with and (suspected) exposure to COVID-19
CPT/HCPCS: 36415; 74177; 76705; 80048; 80053; 81003; 82140; 83690; 83735; 83880; 85025; 85610; 93005; 96366; 96375; 96376; G0378; J0696; J1940; J3475; J3480; J3490; Q9967; U0003; U0005

== ENCOUNTER 2022-08-31 11:36 | Emergency (ER) | payer BC ==
[2022-08-31 12:52] LABS: Hemoglobin 7.5 g/dL (14.0-18.0); Mean Corpuscular HGB CONC 34.1 g/dL (32.0-36.0); Mean Corpuscular Hemoglobin 33.9 pg (27.0-31.0); Mean Corpuscular Volume 99.5 fl (78.0-98.0); Mean Platelet Volume 10.4 fL (7.4-10.4); Platelet Count 22 10x3/uL (130-400); RBC Distribution Width 14.1 % (11.5-14.5); Red Blood Cell (RBC) Count 2.22 mill/uL (4.70-6.10); White Blood Cell (WBC) Count 3.6 10x3/uL (4.8-10.8)
[2022-08-31 12:58] LABS: ALT (SGPT) 32 U/L (8-55); AST (SGOT) 39 U/L (5-34); Albumin 2.4 g/dL (3.5-5.0); Alkaline Phosphatase 136 U/L (40-110); Anion Gap 13 mmol/L (10-20); BUN (Urea Nitrogen) 33 mg/dL (8.4-25.7); Bilirubin, Total 7.7 mg/dL (0.2-1.2); Calc. Creatinine Clearance 0 mL/min (70-130); Calcium 9.3 mg/dL (7.8-10.44); Carbon Dioxide 30 mmol/L (22-29); Chloride 95 mmol/L (98-107); Estimated GFR 61; Globulin 3.9 g/dL (2.4-3.5); Glucose 145 mg/dL (70-105); Protein, Total 6.3 g/dL (6.0-8.3); Sodium 135 mmol/L (136-145)
[2022-08-31 13:17] LABS: Eosinophils 8 % (0-10); INR-International Normal Ratio 2.2; Lymphocytes 13 % (21-51); MDiff Complete? YES; Monocytes 19 % (0-10); Myelocyte 2 % (0-0); Neutrophil 57 % (42-75); PTT 45.4 sec (22.9-36.1); Platelet Morphology Comment Appears Decreased; Polychromasia SLIGHT = 2-3 cells (100X) (0-2/hpf); Prothrombin Time 25.7 sec (12.0-14.7); Reflex for Review?? YES
[2022-08-31] MEDS ORDERED: Potassium Chloride 20 MEQ TAB ONE (13:24)
== END 2022-08-31 15:27 | disposition home or self-care (01) ==
LOC: ERS 11:36
DX: K74.60 Unspecified cirrhosis of liver (principal); D64.9 Anemia, unspecified; E87.6 Hypokalemia; D69.6 Thrombocytopenia, unspecified; D72.819 Decreased white blood cell count, unspecified; E78.2 Mixed hyperlipidemia; Z87.891 Personal history of nicotine dependence
CPT/HCPCS: 36415; 80053; 85025; 85060; 85610; 85730; 86850; 86900; 86901

== ENCOUNTER 2022-10-20 19:41 | Inpatient (IN) | payer BC ==
[~2022-10-20 19:41] MED LIST changes: -Iopamidol 370 76% 100 ML VIAL ONE; +Iopamidol-370 76% 500 ML MDV (1 ML CHARGE) ONE
[2022-10-20] MEDS ORDERED: Piperacillin/Tazobactam 3.375 GM VIAL ONE (20:21)
[2022-10-20] MEDS ORDERED: Acetaminophen 500 MG TAB ONE (20:21)
[2022-10-20 21:23] LABS: Hemoglobin 11.4 g/dL (14.0-18.0); Mean Corpuscular HGB CONC 33.2 g/dL (32.0-36.0); Mean Corpuscular Hemoglobin 34.3 pg (27.0-31.0); Mean Platelet Volume 8.9 fL (7.4-10.4); Platelet Count 56 10x3/uL (130-400); RBC Distribution Width 15.6 % (11.5-14.5); Red Blood Cell (RBC) Count 3.34 mill/uL (4.70-6.10); White Blood Cell (WBC) Count 12.7 10x3/uL (4.8-10.8)
[2022-10-20 21:28] LABS: ALT (SGPT) 37 U/L (8-55); AST (SGOT) 38 U/L (5-34); Albumin 2.7 g/dL (3.5-5.0); Alkaline Phosphatase 148 U/L (40-110); Anion Gap 14 mmol/L (10-20); BUN (Urea Nitrogen) 17 mg/dL (8.4-25.7); Bilirubin, Total 11.7 mg/dL (0.2-1.2); Calc. Creatinine Clearance 0 mL/min (70-130); Calcium 9.5 mg/dL (7.8-10.44); Carbon Dioxide 17 mmol/L (22-29); Chloride 106 mmol/L (98-107); Estimated GFR 106; Globulin 3.7 g/dL (2.4-3.5); Glucose 90 mg/dL (70-105); Potassium 4.1 mmol/L (3.5-5.1); Protein, Total 6.4 g/dL (6.0-8.3); Sodium 133 mmol/L (136-145)
[2022-10-20] MEDS ORDERED: Vancomycin 1 GM/200 ML (FROZEN) BAG ONE (21:50)
[2022-10-20 21:52] LABS: Anisocytosis SLIGHT = 6-15 cells (100X) (0-5/hpf); Band 4 % (5-11); Basophilic Stippling SLIGHT = 1-2 cells (100X) (None Seen); Eosinophils 3 % (0-10); Lymphocytes 2 % (21-51); MDiff Complete? YES; Microcytosis SLIGHT = 6-15 cells (100X) (0-5/hpf); Monocytes 2 % (0-10); Neutrophil 89 % (42-75); Ovalocytes SLIGHT = 2-5 cells (100X) (0-1/hpf); Platelet Morphology Comment Appears Decreased
[2022-10-20 22:02] LABS: Bacteria/HPF None Seen HPF (None Seen); Bilirubin 1+ (Negative); Blood, Urine 2+ (Negative); Clarity Clear (Clear); Glucose, Urine (Dipstick) Normal (Negative); Ketone, Urine Trace mg/dL (Negative); Leukocyte Negative Leu/uL (Negative); Nitrite Negative (Negative); Protein, Urine (Dipstick) 10 mg/dL (Neg-Trace); RBC/HPF 21-50 HPF (0-3); Squamous Epithelial 0-3 HPF (0-3); Urobilinogen Normal mg/dL (Less than 2)
[2022-10-20] MEDS ORDERED: Lactated Ringer's 1,000 ML IV SCH (23:30)
[2022-10-21 00:25] LABS: Lactic Acid 2.9 mmol/L (0.5-2.2)
[2022-10-21] MEDS ORDERED: Azelastine 137 MCG/Spray 30 ML NS PRN (00:53)
[2022-10-21] MEDS ORDERED: Piperacillin/Tazobactam 3.375 GM in Sodium Chloride 0.9% 100 ML IVPB SCH ×2 (03:00→14:00)
[2022-10-21] MEDS ORDERED: Piperacillin/Tazobactam 3.375 GM VIAL ONE (03:11)
[2022-10-21 06:19] LABS: #Eosinphils 0.1 thou/uL (0.0-0.7); #Lymphocytes 0.4 thou/uL (1.20-3.40); #Monocytes 0.4 thou/uL (0.11-0.59); #Neutrophils 5.8 thou/uL (1.40-6.50); %Basophils 0.1 % (0.0-1.0); %Eosinophils 1.4 % (0.0-10.0); %Lymphocytes 6.1 % (21.0-51.0); %Monocytes 6.1 % (0.0-10.0); %Neutrophils 86.2 % (42.0-75.0); Mean Corpuscular HGB CONC 33.8 g/dL (32.0-36.0); Mean Corpuscular Hemoglobin 34.9 pg (27.0-31.0); Mean Platelet Volume 8.9 fL (7.4-10.4); Platelet Count 34 10x3/uL (130-400); RBC Distribution Width 15.5 % (11.5-14.5); Red Blood Cell (RBC) Count 2.86 mill/uL (4.70-6.10); White Blood Cell (WBC) Count 6.8 10x3/uL (4.8-10.8)
[2022-10-21 06:41] LABS: ALT (SGPT) 30 U/L (8-55); AST (SGOT) 29 U/L (5-34); Alkaline Phosphatase 123 U/L (40-110); Anion Gap 9 mmol/L (10-20); BUN (Urea Nitrogen) 16 mg/dL (8.4-25.7); Bilirubin, Total 9.9 mg/dL (0.2-1.2); Calc. Creatinine Clearance 177 mL/min (70-130); Carbon Dioxide 22 mmol/L (22-29); Chloride 107 mmol/L (98-107); Estimated GFR 107; Globulin 3.2 g/dL (2.4-3.5); Glucose 71 mg/dL (70-105); Potassium 3.7 mmol/L (3.5-5.1); Protein, Total 5.2 g/dL (6.0-8.3); Sodium 134 mmol/L (136-145)
[2022-10-21 06:47] VITALS: BMI 36.1
[2022-10-21] MEDS ORDERED: Vancomycin 1 GM in Premix Bag 1 BAG IVPB SCH (09:00)
[2022-10-21] MEDS: Spironolactone 25 MG TAB PO SCH ×2 (09:57→20:42)
[2022-10-21] MEDS: Rifaximin 550 MG TAB PO SCH ×2 (09:58→20:42)
[2022-10-21] MEDS: Furosemide 40 MG TAB PO SCH ×2 (09:58→20:42)
[2022-10-21] MEDS: VANCOMYCIN 2 GRAM/500 ML BAG 2 GM in Premix Bag 1 BAG IVPB SCH ×2 (10:02→22:33)
[2022-10-21] MEDS: Piperacillin/Tazobactam 3.375 GM in Sodium Chloride 0.9% 100 ML IVPB SCH (18:06)
[2022-10-22] MEDS: Albumin 25% 25 GM/100 ML BOT IVPB SCH ×4 (01:58→15:17)
[2022-10-22] MEDS: Piperacillin/Tazobactam 3.375 GM in Sodium Chloride 0.9% 100 ML IVPB SCH ×3 (03:07→17:04)
[2022-10-22 04:31] LABS: Hemoglobin 9.9 g/dL (14.0-18.0); Mean Corpuscular HGB CONC 34.6 g/dL (32.0-36.0); Mean Corpuscular Hemoglobin 35.5 pg (27.0-31.0); Mean Platelet Volume 9.1 fL (7.4-10.4); Platelet Count 46 10x3/uL (130-400); RBC Distribution Width 15.4 % (11.5-14.5); Red Blood Cell (RBC) Count 2.79 mill/uL (4.70-6.10); White Blood Cell (WBC) Count 4.9 10x3/uL (4.8-10.8)
[2022-10-22 04:46] LABS: INR-International Normal Ratio 3.2; Prothrombin Time 34.5 sec (12.0-14.7)
[2022-10-22 04:50] LABS: ALT (SGPT) 32 U/L (8-55); AST (SGOT) 29 U/L (5-34); Albumin 2.5 g/dL (3.5-5.0); Alkaline Phosphatase 144 U/L (40-110); Anion Gap 10 mmol/L (10-20); BUN (Urea Nitrogen) 15 mg/dL (8.4-25.7); Bilirubin, Total 8.4 mg/dL (0.2-1.2); Calc. Creatinine Clearance 179 mL/min (70-130); Calcium 8.7 mg/dL (7.8-10.44); Carbon Dioxide 20 mmol/L (22-29); Chloride 105 mmol/L (98-107); Estimated GFR 108; Globulin 3.2 g/dL (2.4-3.5); Glucose 92 mg/dL (70-105); Magnesium 1.4 mg/dL (1.6-2.6); Potassium 3.7 mmol/L (3.5-5.1); Protein, Total 5.7 g/dL (6.0-8.3); Sodium 131 mmol/L (136-145)
[2022-10-22 05:09] LABS: Band 2 % (5-11); Eosinophils 6 % (0-10); Lymphocytes 11 % (21-51); MDiff Complete? YES; Monocytes 15 % (0-10); Neutrophil 66 % (42-75); Platelet Morphology Comment Appears Decreased
[2022-10-22] MEDS: Rifaximin 550 MG TAB PO SCH ×3 (08:45→21:16)
[2022-10-22] MEDS: Spironolactone 25 MG TAB PO SCH ×2 (08:45→21:16)
[2022-10-22] MEDS: Furosemide 40 MG TAB PO SCH ×2 (08:45→21:17)
[2022-10-22 15:03] LABS: Campy jejuni + coli by PCR Negative (Negative); STEC Shiga Toxin 1+2 Negative (Negative); Salmonella spp. by PCR Negative (Negative); Shigella spp + EIEC by PCR Negative (Negative)
[2022-10-23] MEDS: Piperacillin/Tazobactam 3.375 GM in Sodium Chloride 0.9% 100 ML IVPB SCH ×3 (03:18→18:55)
[2022-10-23 08:38] LABS: ALT (SGPT) 33 U/L (8-55); AST (SGOT) 32 U/L (5-34); Albumin 2.8 g/dL (3.5-5.0); Alkaline Phosphatase 152 U/L (40-110); Anion Gap 13 mmol/L (10-20); BUN (Urea Nitrogen) 12 mg/dL (8.4-25.7); Bilirubin, Total 6.9 mg/dL (0.2-1.2); Calc. Creatinine Clearance 208 mL/min (70-130); Calcium 8.9 mg/dL (7.8-10.44); Carbon Dioxide 20 mmol/L (22-29); Chloride 104 mmol/L (98-107); Estimated GFR 112; Globulin 3.4 g/dL (2.4-3.5); Glucose 88 mg/dL (70-105); Potassium 3.7 mmol/L (3.5-5.1); Protein, Total 6.2 g/dL (6.0-8.3); Sodium 133 mmol/L (136-145)
[2022-10-23] MEDS: Furosemide 40 MG TAB PO SCH ×2 (09:10→21:01)
[2022-10-23] MEDS: Rifaximin 550 MG TAB PO SCH ×2 (09:10→21:01)
[2022-10-23] MEDS: Spironolactone 25 MG TAB PO SCH ×2 (09:10→21:01)
[2022-10-23 09:17] LABS: Band 7 % (5-11); Eosinophils 12 % (0-10); Hemoglobin 10.2 g/dL (14.0-18.0); Lymphocytes 13 % (21-51); MDiff Complete? YES; Macrocytosis SLIGHT = 6-15 cells (100X) (0-5/hpf); Mean Corpuscular HGB CONC 34.3 g/dL (32.0-36.0); Mean Corpuscular Hemoglobin 34.8 pg (27.0-31.0); Mean Platelet Volume 9.3 fL (7.4-10.4); Monocytes 16 % (0-10); Neutrophil 51 % (42-75); Ovalocytes SLIGHT = 2-5 cells (100X) (0-1/hpf); Platelet Count 51 10x3/uL (130-400); Platelet Morphology Comment Appears Decreased; Polychromasia SLIGHT = 2-3 cells (100X) (0-2/hpf); RBC Distribution Width 15.5 % (11.5-14.5); Reactive Lymphocytes 1 % (0-10); Red Blood Cell (RBC) Count 2.94 mill/uL (4.70-6.10); Schistocytes SLIGHT = 2-5 cells (100X) (0-1/hpf); Tear Drops SLIGHT = 2-5 cells (100X) (0-1/hpf); White Blood Cell (WBC) Count 3.7 10x3/uL (4.8-10.8)
[2022-10-24] MEDS: Albumin 25% 25 GM/100 ML BOT IVPB SCH ×4 (00:09→17:27)
[2022-10-24] MEDS: Piperacillin/Tazobactam 3.375 GM in Sodium Chloride 0.9% 100 ML IVPB SCH ×3 (01:13→18:52)
[2022-10-24 08:08] LABS: ALT (SGPT) 34 U/L (8-55); AST (SGOT) 47 U/L (5-34); Albumin 3.1 g/dL (3.5-5.0); Alkaline Phosphatase 150 U/L (40-110); Anion Gap 13 mmol/L (10-20); BUN (Urea Nitrogen) 10 mg/dL (8.4-25.7); Bilirubin, Total 6.3 mg/dL (0.2-1.2); Calc. Creatinine Clearance 200 mL/min (70-130); Calcium 9.2 mg/dL (7.8-10.44); Carbon Dioxide 16 mmol/L (22-29); Chloride 104 mmol/L (98-107); Estimated GFR 111; Globulin 3.8 g/dL (2.4-3.5); Glucose 94 mg/dL (70-105); Potassium 4.1 mmol/L (3.5-5.1); Protein, Total 6.9 g/dL (6.0-8.3); Sodium 129 mmol/L (136-145)
[2022-10-24 08:59] LABS: Band 5 % (5-11); Eosinophils 7 % (0-10); Hemoglobin 10.2 g/dL (14.0-18.0); Lymphocytes 17 % (21-51); MDiff Complete? YES; Macrocytosis SLIGHT = 6-15 cells (100X) (0-5/hpf); Mean Corpuscular HGB CONC 33.6 g/dL (32.0-36.0); Mean Corpuscular Hemoglobin 34.4 pg (27.0-31.0); Mean Platelet Volume 8.7 fL (7.4-10.4); Monocytes 17 % (0-10); Neutrophil 51 % (42-75); Platelet Count 58 10x3/uL (130-400); Platelet Morphology Comment Appears Decreased; Polychromasia SLIGHT = 2-3 cells (100X) (0-2/hpf); RBC Distribution Width 15.7 % (11.5-14.5); Reactive Lymphocytes 3 % (0-10); Red Blood Cell (RBC) Count 2.98 mill/uL (4.70-6.10); Target Cells SLIGHT = 2-5 cells (100X) (0-1/hpf); Tear Drops SLIGHT = 2-5 cells (100X) (0-1/hpf); White Blood Cell (WBC) Count 3.4 10x3/uL (4.8-10.8)
[2022-10-24] MEDS: Furosemide 40 MG/4 ML VIAL SLOW IVP SCH (09:31)
[2022-10-24] MEDS: Rifaximin 550 MG TAB PO SCH ×2 (09:33→21:45)
[2022-10-24] MEDS: Spironolactone 25 MG TAB PO SCH ×2 (09:33→21:45)
[2022-10-24 10:43] LABS: Bacteria/HPF None Seen HPF (None Seen); Bilirubin Negative (Negative); Blood, Urine Negative (Negative); Clarity Clear (Clear); Glucose, Urine (Dipstick) Normal (Negative); Ketone, Urine Negative (Negative); Leukocyte 75 Leu/uL (Negative); Nitrite Negative (Negative); Protein, Urine (Dipstick) Negative (Neg-Trace); RBC/HPF 0-3 HPF (0-3); Squamous Epithelial 0-3 HPF (0-3); Urobilinogen Normal mg/dL (Less than 2); pH, Urine 6.5 (5.0-9.0)
[2022-10-24] MEDS ORDERED: Furosemide 20 MG/2 ML VIAL SLOW IVP SCH (14:00)
[2022-10-25] MEDS: Piperacillin/Tazobactam 3.375 GM in Sodium Chloride 0.9% 100 ML IVPB SCH (03:14)
[2022-10-25 06:19] LABS: Hemoglobin 9.4 g/dL (14.0-18.0); Mean Corpuscular HGB CONC 34.7 g/dL (32.0-36.0); Mean Corpuscular Hemoglobin 35.2 pg (27.0-31.0); Mean Platelet Volume 8.7 fL (7.4-10.4); Platelet Count 44 10x3/uL (130-400); RBC Distribution Width 15.6 % (11.5-14.5); Red Blood Cell (RBC) Count 2.68 mill/uL (4.70-6.10); White Blood Cell (WBC) Count 3.4 10x3/uL (4.8-10.8)
[2022-10-25 06:22] LABS: ALT (SGPT) 31 U/L (8-55); AST (SGOT) 32 U/L (5-34); Albumin 3.1 g/dL (3.5-5.0); Alkaline Phosphatase 121 U/L (40-110); Anion Gap 11 mmol/L (10-20); BUN (Urea Nitrogen) 10 mg/dL (8.4-25.7); Calc. Creatinine Clearance 208 mL/min (70-130); Calcium 9.4 mg/dL (7.8-10.44); Carbon Dioxide 22 mmol/L (22-29); Chloride 104 mmol/L (98-107); Estimated GFR 111; Globulin 2.8 g/dL (2.4-3.5); Glucose 85 mg/dL (70-105); Potassium 3.7 mmol/L (3.5-5.1); Protein, Total 5.9 g/dL (6.0-8.3); Sodium 133 mmol/L (136-145)
[2022-10-25 07:06] LABS: Anisocytosis SLIGHT = 6-15 cells (100X) (0-5/hpf); Crenated RBC SLIGHT = 1-5 cells (100X) (None Seen); Eosinophils 6 % (0-10); Lymphocytes 26 % (21-51); MDiff Complete? YES; Macrocytosis SLIGHT = 6-15 cells (100X) (0-5/hpf); Monocytes 15 % (0-10); Neutrophil 53 % (42-75); Ovalocytes SLIGHT = 2-5 cells (100X) (0-1/hpf); Platelet Morphology Comment Appears Decreased; Polychromasia SLIGHT = 2-3 cells (100X) (0-2/hpf); Tear Drops SLIGHT = 2-5 cells (100X) (0-1/hpf)
[2022-10-25 07:07] VITALS: BP 119/69; TEMP 98.2
[2022-10-25] MEDS: Furosemide 40 MG/4 ML VIAL SLOW IVP SCH (08:20)
[2022-10-25] MEDS: Spironolactone 25 MG TAB PO SCH (08:20)
[2022-10-25] MEDS: Rifaximin 550 MG TAB PO SCH (08:20)
[2022-10-31] MEDS ORDERED: Thiamine 100 MG TAB PO SCH (09:00)
== END 2022-10-25 12:24 | disposition home health service (06) | DRG 871 ==
LOC: ERS 19:41 → ERHOLD 22:14 → T4-B 10-21 08:34
PROVIDERS: ADMIT Family Medicine; ATTEND Family Medicine
DX: A41.59 Other Gram-negative sepsis (principal); K65.2 Spontaneous bacterial peritonitis; E87.20 Acidosis, unspecified; E22.2 Syndrome of inappropriate secretion of antidiuretic hormone; K75.81 Nonalcoholic steatohepatitis (NASH); E78.5 Hyperlipidemia, unspecified; I10 Essential (primary) hypertension; K76.82 Hepatic encephalopathy; K72.10 Chronic hepatic failure without coma; D69.6 Thrombocytopenia, unspecified; K74.69 Other cirrhosis of liver; Z90.49 Acquired absence of other specified parts of digestive tract; Z79.899 Other long term (current) drug therapy
CPT/HCPCS: 36415; 70450; 71045; 74177; 80053; 81001; 81003; 81015; 82105; 82140; 83605; 83735; 83880; 84300; 84443; 84484; 85025; 85610; 87040; 87077; 87086; 87149; 87186; 87505; 87631; 93005; J1940; J2543; J3370; J3370-JW; J3411; J3490; J7120; P9047; Q9967; U0003; U0005

== ENCOUNTER 2022-11-19 19:30 | Outpatient (CLI) | payer BC | END 2022-11-19 19:31 | disposition home or self-care (01) | LOC: SLEEPLAB 19:30 | PROVIDERS: ATTEND Family Medicine | DX: G47.33 Obstructive sleep apnea (adult) (pediatric) (principal); R53.83 Other fatigue; G31.84 Mild cognitive impairment of uncertain or unknown etiology; F32.A Depression, unspecified; E11.9 Type 2 diabetes mellitus without complications; R06.83 Snoring; E66.9 Obesity, unspecified; K21.9 Gastro-esophageal reflux disease without esophagitis; R35.1 Nocturia; I11.9 Hypertensive heart disease without heart failure; G47.00 Insomnia, unspecified; G47.10 Hypersomnia, unspecified; Z68.36 Body mass index [BMI] 36.0-36.9, adult | CPT/HCPCS: 95810 ==

== ENCOUNTER 2022-12-08 19:30 | Outpatient (CLI) | payer BC | END 2022-12-08 19:31 | disposition home or self-care (01) | LOC: SLEEPLAB 19:30 | PROVIDERS: ATTEND Family Medicine | DX: G47.33 Obstructive sleep apnea (adult) (pediatric) (principal); R53.83 Other fatigue; R09.89 Other specified symptoms and signs involving the circulatory and respiratory systems; G31.84 Mild cognitive impairment of uncertain or unknown etiology; E11.9 Type 2 diabetes mellitus without complications; K21.9 Gastro-esophageal reflux disease without esophagitis; F32.A Depression, unspecified; R06.83 Snoring; R35.1 Nocturia; I51.89 Other ill-defined heart diseases; Z68.36 Body mass index [BMI] 36.0-36.9, adult | CPT/HCPCS: 95811 ==